=== PATIENT | male | born 1950 | race African-American/Black ===

== ENCOUNTER 2017-03-14 10:16 | Inpatient (IN) | payer MEDICARE ==
[2017-03-14] VITALS (11 sets, daily range): BP systolic 102–129; BP diastolic 61–93; PULSE 67–82; RESP 18–20; TEMP 98.1–98.4; O2SAT 96–100
[~2017-03-14 10:16] MED LIST: ALBU17I PO; ALBU8I INH; APIX5TAB PO; ATOR40TA PO; COZA100T PO; CYCL-36 PO; DIGO0.12 PO; FLON0.053 INH; LORA10TA7 PO; LORT5TAB PO; METO100T PO; PROT40TA PO; STOO100T PO; TOVI4TAB PO; VITA100020 PO; VITA20003 PO
[2017-03-14] MEDS ORDERED: HEPARIN SODIUM - IV 10,000 UNITS/10 ML VIAL IV PUSH STA (10:17)
[2017-03-14] MEDS ORDERED: SODIUM CHLOR 0.9% 1000 ML INJ 1,000 ML IV ONE (10:17)
[2017-03-14] MEDS ORDERED: NITROGLYCERIN 0.4 MG SL 25 TABS/BTL SL STA (10:17)
[2017-03-14] MEDS ORDERED: ASPIRIN 81 MG CHEW TAB PO STA (10:17)
[2017-03-14] MEDS ORDERED: ASPIRIN 81 MG CHEW TAB ONE (10:22)
[2017-03-14] MEDS ORDERED: HEPARIN-NS/PF INJ 1,000 ML ONE (10:25)
[2017-03-14] MEDS ORDERED: SODIUM CHLORIDE 0.9% FLUSH 10 ML FLUSH IVF PRN (10:30)
--- NOTE | 2017-03-14 10:35 | RADRPT ---
EXAM DATE/TIME: 03/14/2017 10:21 [place] COMPARISON: No previous studies available for comparison. INDICATIONS : Chest pain, STEMI alert. MEDICAL HISTORY : None. SURGICAL HISTORY : None. ENCOUNTER: Initial ACUITY: 1 day PAIN SCORE: 10/10 LOCATION: middle chest. FINDINGS: A single view of the chest demonstrates the lungs to be symmetrically aerated without evidence of mas s, infiltrate or effusion. Atherosclerotic changes are present in the aorta. There is moderate eleva tion of the left lyubov-diaphragm with mild gaseous distention in the region of the splenic flexure. Mu ltiple overlying retrocardiac region present. The cardiomediastinal contours are unremarkable. [place] structures are intact. CONCLUSION: 1. Moderate elevation of the left hemidiaphragm with mild gaseous distention in the region the spleni c flexure. 2. No confluent infiltrates or effusions. Tim Mathew MD on March 14, 2017 at 10:33 Board Certified Radiologist. This report was verified electronically.
[2017-03-14 10:36] LABS: AUTOMATED NEUTROPHIL # 2.3 TH/MM3 (1.8-7.7); BASOPHIL % 0.4 % (0.0-2.0); EOSINOPHIL # 0.1 TH/MM3 (0-0.4); EOSINOPHIL % 1.7 % (0.0-4.0); HEMATOCRIT 37.2 % (39.0-51.0); HEMOGLOBIN 12.2 GM/DL (13.0-17.0); LYMPHOCYTE # 2.8 TH/MM3 (1.0-4.8); MEAN CELL VOLUME 91.9 FL (80.0-100.0); MEAN CORPUSCULAR HEMOGLOBIN 30.2 PG (27.0-34.0); MEAN CORPUSCULAR HGB CONC 32.9 % (32.0-36.0); MEAN PLATELET VOLUME 9.9 FL (7.0-11.0); MONO % 9.5 % (0.0-8.0); MONOCYTE # 0.6 TH/MM3 (0-0.9); NEUT % 39.4 % (16.0-70.0); PLATELET COUNT 133 TH/MM3 (150-450); RED BLOOD COUNT 4.04 MIL/MM3 (4.50-5.90); RED CELL DISTRIBUTION WIDTH 12.5 % (11.6-17.2); WHITE BLOOD COUNT 5.8 TH/MM3 (4.0-11.0)
[2017-03-14 10:47] LABS: INTERNATIONAL NORMALIZED RATIO 1.1 RATIO; PROTHROMBIN TIME - PATIENT 10.8 SEC (9.8-11.6)
[2017-03-14] MEDS ORDERED: NITROGLYCERIN 0.4 MG SL 25 TABS/BTL SL ONE (10:47)
--- NOTE | 2017-03-14 10:49 | PD ---
HPI Chief Complaint: STEMI Alert Time Seen by Provider: 10:17 Travel History International Travel<30 days: No Contact w/Intl Traveler<30days: No Traveled to known affect area: No History of Present Illness HPI Patient is a 67 year old male who had sudden onset of heavy chest pain in the center of his chest approximately 30 mins MARKER DELIVERY. Patient followed by Dr. Tate. EMS called stemi alert in the field for anterior ischemia. Patient has history of atrial fibrillation previously on eliquis was stopped several months ago. Patient also reports SOB. states he looked like he was going to pass out. Appears quite uncomfortable on arrival. Had 81 ASA at home prior to EMS, 81mg of ASA from EMS. Nitro x1 from EMS with minimal relief. No cath no stress in past according to him. Symptoms severe, onset just prior to arrival, associated s/s as above, context as above, no radiation. PFSH Past Medical History Asthma: Yes Cancer: No Cardiovascular Problems: Yes Diabetes: No Diminished Hearing: No Endocrine: No Glaucoma: No Genitourinary: Yes (BPH) Hepatitis: No Hiatal Hernia: No Hypertension: Yes Immune Disorder: No Musculoskeletal: Yes (BACK) Neurologic: No Psychiatric: No Reproductive: No Respiratory: Yes (ASTHMA) Thyroid Disease: No Past Surgical History Abdominal Surgery: Yes (LAP SYLVIA) Body Medical Devices: SCREWS BACK Cholecystectomy: Yes (1999) Endocrine Surgery: Yes Genitourinary Surgery: Yes (08/23/10 CYSTOSCOPY TUR PROSTATE) Joint Replacement: No Oral Surgery: Yes (T&A) Pacemaker: No Other Surgery: Yes (gallbaldder x20 years) Social History Alcohol Use: Yes (STOPPED DRINKING BEER 2002) Tobacco Use: No Substance Use: No Allergies-Medications (Allergen,Severity, Reaction): Coded Allergies: No Known Allergies (Verified , 12/09/15) Reported Meds & Prescriptions Reported Meds & Active Scripts Active Toviaz (Fesoterodine Fumarate) 4 Mg Tab 4 Mg PO DAILY Reported Atorvastatin 40 mg (Atorvastatin Calcium) 40 Mg Tab 40 Mg PO DAILY Vitamin B-12 (Cyanocobalamin) 1,000 Mcg Tab 1,000 Mcg PO DAILY Metoprolol Tartrate 100 mg (Metoprolol Tartrate) 100 Mg Tab 50 Mg PO BID Eliquis (Apixaban) 5 Mg Tab 5 Mg PO BID Digoxin 0.125 mg (Digoxin) 0.125 Mg Tab 0.125 Mg PO DAILY Ventolin Hfa (Albuterol Sulfate) 8 Gm Aero 2 Puff INH Q4 * SHAKE WELL BEFORE USE * Stool Softener (Docusate Sodium) 100 Mg Tab 100 PO DAILY PRN Vitamin D (Cholecalciferol) 2,000 Unit Tab 4,000 Unit PO DAILY Protonix (Pantoprazole Sodium) 40 Mg Tabdr 40 Mg PO DAILY Lortab 5/500 (Acetaminophen/Hydrocodone Bitart) 5 Mg/500 Mg Tab 1 Tab PO TID PRN Cozaar (Losartan Potassium) 100 Mg Tab 100 Mg PO DAILY Flexeril (Cyclobenzaprine HCl) 10 Mg Tab 10 Mg PO HSPRN Proventil Mdi (Albuterol Sulfate) 17 Gm Aero 2 Puff PO Q4-6HPRN DYSPNEA Claritin (Loratadine) 10 Mg Tab 10 Mg PO BIDPRN Flonase (Fluticasone Propionate) 0.05 % Naspr 50 Mcg INH BIDPRN Review of Systems Except as stated in HPI: all other systems reviewed are Neg Physical Exam Narrative GENERAL: WD/WN diaphoretic, uncomfortable, quite uncomfortable appearance. SKIN: cool and diaphoretic. HEAD: Atraumatic. Normocephalic. EYES: Pupils equal and round. No scleral icterus. No injection or drainage. ENT: No nasal bleeding or discharge. Mucous membranes pink and moist. NECK: Trachea midline. No JVD. CARDIOVASCULAR: Regular rate and rhythm. 2+bilaterally equal pulses in all four extremities. RESPIRATORY: No accessory muscle use. Clear to auscultation. Breath sounds equal bilaterally. GASTROINTESTINAL: Abdomen soft, non-tender, nondistended. Hepatic and splenic margins not palpable. MUSCULOSKELETAL: Extremities without clubbing, cyanosis, or edema. No obvious deformities. NEUROLOGICAL: Awake and alert. No obvious cranial nerve deficits. Motor grossly within normal limits. Five out of 5 muscle strength in the arms and legs. Normal speech. PSYCHIATRIC: Appropriate mood and affect; insight and judgment normal. Data Data Last Documented VS Vital Signs Date Time Temp Pulse Resp B/P (MAP) Pulse Ox O2 Delivery O2 Flow Rate FiO2 03/14/17 10:27 Nasal Cannula 2.00 03/14/17 10:21 98.4 81 18 126/92 (103) 100 Orders Orders Troponin I (03/14/17 10:17) Ckmb (Isoenzyme) Profile (03/14/17 10:17) Complete Blood Count With Diff (03/14/17 10:17) I-Stat Profile (03/14/17 10:17) I-Stat Creatinine (03/14/17 10:17) Calcium (03/14/17 10:17) Magnesium (Mg) (03/14/17 10:17) Prothrombin Time / Inr (Pt) (03/14/17 10:17) Act Partial Throm Time (Ptt) (03/14/17 10:17) B-Type Natriuretic Peptide (03/14/17 10:17) Chest, Single Ap (03/14/17 10:17) Electrocardiogram (03/14/17 10:17) Oxygen Administration (03/14/17 10:17) Iv Access Insert/Monitor (03/14/17 10:17) Oximetry (03/14/17 10:17) Sodium Chlor 0.9% 1000 Ml Inj (Ns 1000 M (03/14/17 10:17) Sodium Chloride 0.9% Flush (Ns Flush) (03/14/17 10:30) Nitroglycerin Sl (Nitrostat Sl) (03/14/17 10:17) Heparin Inj (Heparin Inj) (03/14/17 10:17) Aspirin Chew (Aspirin Chew) (03/14/17 10:17) Aspirin Chew (Aspirin Chew) (03/14/17 10:22) Heparin-Ns/Pf Inj (Heparin-Ns/Pf Inj) (03/14/17 10:25) Cardiac Catheterization (03/14/17 ) Nitroglycerin Sl (Adm Overrid) (Nitrosta (03/14/17 10:47) Admit Order (Ed Use Only) (03/14/17 ) Labs Laboratory Tests Test 03/14/17 10:20 White Blood Count 5.8 TH/MM3 Red Blood Count 4.04 MIL/MM3 Hemoglobin 12.2 GM/DL Bedside Hemoglobin 12.2 G/DL Hematocrit 37.2 % Bedside Hematocrit 36.0 % Mean Corpuscular Volume 91.9 FL Mean Corpuscular Hemoglobin 30.2 PG Mean Corpuscular Hemoglobin Concent 32.9 % Red Cell Distribution Width 12.5 % Platelet Count 133 TH/MM3 Mean Platelet Volume 9.9 FL Neutrophils (%) (Auto) 39.4 % Lymphocytes (%) (Auto) 49.0 % Monocytes (%) (Auto) 9.5 % Eosinophils (%) (Auto) 1.7 % Basophils (%) (Auto) 0.4 % Neutrophils # (Auto) 2.3 TH/MM3 Lymphocytes # (Auto) 2.8 TH/MM3 Monocytes # (Auto) 0.6 TH/MM3 Eosinophils # (Auto) 0.1 TH/MM3 Basophils # (Auto) 0.0 TH/MM3 CBC Comment DIFF FINAL Differential Comment Prothrombin Time 10.8 SEC Prothromb Time International Ratio 1.1 RATIO Activated Partial Thromboplast Time 22.6 SEC Bedside Sodium 142 MMOL/L Bedside Potassium 3.6 MMOL/L Bedside Chloride 109 MMOL/L Bedside Blood Urea Nitrogen 12 MG/DL Bedside Creatinine 1.0 MG/DL Bedside Glucose 135 MG/DL Calcium Level 9.5 MG/DL Magnesium Level 2.1 MG/DL MDM Medical Decision Making Medical Screen Exam Complete: Yes Emergency Medical Condition: Yes Differential Diagnosis STEMI, AMI, NSTEMI, CHF. Narrative Course Discussed with Dr. Tate who is on STEMI call for [facility] @ 10:23 he is currently at [facility] and is enroute. 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 10:30am in skill labor. Awaiting arrival of Dr. Tate. I am remaining at the bedside, i have verbal ordered another 2xSL nitro to the skill labor personnel. Dr. Tate in skill labor at 10:55, care passed off at this time. Last 24 hours Impressions Chest X-Ray 03/14/17 1017 Signed Impressions: Service Date/Time: Tuesday, March 14, 2017 10:21 - CONCLUSION: 1. Moderate elevation of the left hemidiaphragm with mild gaseous distention in the region the splenic flexure. 2. No confluent infiltrates or effusions. Tim Mathew MD Total interventions: 324ASA 4xSL nitro 0.4 5000u Heparin. Oxygen. NS administered by skill labor personnel. Critical Care Narrative Aggregate critical care time was 35 minutes. Time to perform other separately billable procedures was not included in the critical care time. My time did not include minutes spent treating any other patients simultaneously or on activities that did not directly contribute to the patient's treatment. The services I provided to this patient were to treat and/or prevent clinically significant deterioration that could result in: , Disability, End organ failure. I provided critical care services requiring my management, as noted below: Chart data review, documentation time, medication orders and management, vital sign assessments/reviewing monitor data, ordering and reviewing lab tests, ordering and interpreting/reviewing x-rays and diagnostic studies, care of the patient and discussion of the patient with the admitting physicians. Diagnosis Primary Impression: STEMI (ST elevation myocardial infarction) Admitting Information Admitting Physician Requests: Admit Condition: Critical Kye Wilson MD Mar 14, 2017 10:49
[2017-03-14 10:52] LABS: CALCIUM 9.5 MG/DL (8.5-10.1); MAGNESIUM 2.1 MG/DL (1.5-2.5)
[2017-03-14 10:55] LABS: TROPONIN I 0.02 NG/ML (0.02-0.05)
[2017-03-14] MEDS ORDERED: MORPHINE SULFATE 8 MG/ML INJ ONE (10:58)
[2017-03-14] MEDS ORDERED: ONDANSETRON HCL 4 MG/2 ML VIAL ONE (11:24)
[2017-03-14] MEDS ORDERED: CLOPIDOGREL 300 MG TAB ONE (11:24)
[2017-03-14] MEDS: ONDANSETRON HCL 4 MG/2 ML VIAL IV PUSH PRN ×3 (11:25→21:32)
--- NOTE | 2017-03-14 11:44 | CATHPROC ---
[facility] HIS Report Study Information Study Number Admission Scheduled Start Study Start [id number] Mar 14 2017 10:16AM 03/14/2017 Mar 14 2017 10:30AM [place] [facility] Cardiac Catheterization Admit Source Facility Department Emergency department [facility] - Community Administrator Physician and Clinical Staff Initial José Antonio Smart Operations/Dispatchsarah Buenrostro RN, Malou Garcia,ZACH Recorder Elmo, Harman,RT(R) Scrub Cami Chapman,DUKE TECH2 Procedures Performed Procedure Location (Site) Vessel Name Coronary Angiograms LCA Left Coronary Coronary Angiograms RCA Right Coronary Drug Eluting Inflatio LAD Prox Left Coronary L Heart Cath PTCA LAD Prox Left Coronary Wire insertion Fem Art (right) Femoral Art Equipment Time Radio Talk Show Host Description Size Mfg Part Number Used/Scraped [id number] 11:03 [employer] WIRE, ASABreathez Vac Services PROWATER 180CM 180CM Used *[id number] TRANSDUCER, TRUWAVE [id number] 10:31 Sharypic CHANG * Used W/STOCKCOCK *[id number] *[id number] *[id number] *[id number] *[id number] 10:31 Booster.[employer] INDUSTRIES PACK, CCL CUSTOM * Used *[id number] 10:31 Booster.[employer] PACER PEN, SKIN DUAL W/ RULER * Used *[id number] 11:11 [employer]IC BALLOON, 2.0 X 15MM EUPHORA 15MM Used *[id number] 11:14 [employer] STENT, 3.5 18MM RAJINDER 3.5 18MM Used *[id number] 11:13 [employer]vision [employer] MEDICAL 30 RACHEL INDEFLATOR Used *[id number] 10:31 [employer] SHEATH, FR6.5 PRELUDE 11CM FR 6.5 038ACT Used *[id number] 10:31 [employer] WIRE, 3MMJ .035 180CM 180CM Used *[id number] 10:31 NAMIC MANIFOLD, 4 PORT * Used *[id number] 10:31 [employer]COMED OMNIPAQUE, 350 MG, 100ML 100ML [id number] Used [id number] 10:31 [employer],WARM AIR CCL * Used *[id number] Equipment Model, Serial, Lot Number and Expiration Data Description Model Number Serial Number Lot Number Expiration Date STENT, 3.5 18MM RAJINDER [id number] 12-27-2018 History: Allergies Allergy Reaction No Known Allergies History: Risk Factors Family History of Hypertension Dyslipidemia Previous [place] Previous Heart Failure Premature CAD Yes Yes Yes No No Prior Valve Prior PCI Prior CABG Surgery No No No Cerebrovascular Peripheral Artery Chronic Lung On Dialysis Diabetes Disease Disease Disease No No No No No History: Stress Tests Stress or Imaging Studies Performed No History: Other Current Smoker No Labs Hgb (g/dl) Hct (%) 11.60-17.00 35.00-51.00 12.2 36 Glucose (mg/dl) BUN (mg/dl) Creatinine (mg/dl) BUN:Creatinine (1:x) 74.00-106.00 7.00-18.00 0.50-1.30 10.00-20.00 135 12 1.0 12 Na (meq/l) K (meq/l) 136.00-145.00 3.50-5.10 142 3.6 CPK-MB (ng/ML) 0.50-3.60 Not Drawn Medication Medication Total Dose (Bolus/Oral) Medication Total Dosage/Unit 1% XYLOCAINE 20 mL HEPARIN 1500 units MORPHINE 8 mg NITROGLYCERIN S/L 0.8 mg PLAVIX 600 mg ZOFRAN 4 mg Medications (Bolus/Oral) Medication Time Given Dosage/Unit Administered By Reason 03/14/2017 10:48:18 NITROGLYCERIN S/L 0.4 mg Malou Saleh AM 0.4 mg NITROGLYCERIN S/L given in lab by Malou Saleh, ZACH via Sublingual. verbal order by Dr. Wilson 03/14/2017 10:53:40 NITROGLYCERIN S/L 0.4 mg Malou Saleh AM 0.4 mg NITROGLYCERIN S/L given in lab by Malou Saleh, ZACH via Sublingual. verbal order by Dr. Wilson 03/14/2017 10:59:02 1% XYLOCAINE 20 mL José Antonio Tate AM 20 mL 1% XYLOCAINE given in lab by José Antonio Tate in Right Groin via Subcutaneous. 03/14/2017 11:00:30 MORPHINE 8 mg Malou Saleh AM 8 mg MORPHINE given in lab by Malou Saleh, ZACH in Left Antecubital via Peripheral IV. Ordered by José Antonio Terry. 03/14/2017 11:06:06 HEPARIN 1000 units Cody Malou AM 1000 units HEPARIN given in lab by Malou Saleh, ZACH in Left Antecubital via Peripheral IV. Ordered by José Antonio Tate. 03/14/2017 11:16:27 HEPARIN 500 units Hes, Malou AM 500 units HEPARIN given in lab by Malou Saleh, ZACH in Left Antecubital via Peripheral IV. Ordered José Antonio Hall. 03/14/2017 11:25:34 ZOFRAN 4 mg Hes, Malou AM 4 mg ZOFRAN given in lab by Malou Saleh RN in Left Antecubital via Central IV. Ordered by José Antonio Lr. 03/14/2017 11:29:30 PLAVIX 600 mg Malou Saleh AM 600 mg PLAVIX given in lab by Malou Saleh, ZACH via Oral. Ordered by José Antonio Tate. Medication (Drip) Medication Time Given Dosage/Unit Concentration/Unit Diluent (ml) Solution 03/14/2017 10:36:49 IV Solutions 0 mL (IV) 1000 NaCl .9 AM Patient arrived on IV Solutions given by José Antonio Tate in Left Antecubital via Peripheral IV. Pump/ Drip Flow = 20 ml/hr using NaCl .9. Ordered by José Antonio Tate. 03/14/2017 10:40:07 IV Solutions 0 mL (IV) 1000 NaCl .9 AM IV Solutions given in lab by José Antonio Tate in Right Antecubital via Peripheral IV. Pump/Drip Flow = 20 ml/hr using NaCl .9. Ordered by José Antonio Tate. Initial Case Assessment Cardiovascular HR Rhythm NIBP Chest Pain 94 stemi 137/103 10 Edema Present Skin color Skin None Normal Warm Dry Circulatory - Right Pulses Dorsalis Pedis Femoral 1 1 Scale (0,1,2,3,4,d) Circulatory - Left Pulses Dorsalis Pedis Femoral 1 3 Scale (0,1,2,3,4,d) Neurological State Oriented to time-place- Alert Moves all extremities person Respiration - General Respiration Rate SpO2 (%) O2 (lpm) (B/min) 18 99 2 Final Case Assessment Cardiovascular HR Rhythm NIBP Chest Pain 80 SR 113/81 0 Edema Present Skin color Skin None Normal Warm Dry Circulatory - Right Pulses Dorsalis Pedis Femoral 1 1 Scale (0,1,2,3,4,d) Circulatory - Left Pulses Dorsalis Pedis Femoral 1 3 Scale (0,1,2,3,4,d) Neurological State Oriented to time-place- Alert Moves all extremities person Respiration - General Respiration Rate SpO2 (%) O2 (lpm) (B/min) 20 95 2 Chronological Log Time Study Chronological Log 10:33:37 Patient arrived via Bed. 10:33:39 Patient Name, D.O.B, / Armband Verified By R.N. 10:33:40 Consent signed by the physician and the patient and verified by the Community Administrator staff. 10:33:42 Pre-op and post- op instructions given; patient acknowledges understanding of instructions. 10:34:19 Verbal Stimulation=2 Physical Stimulation=2 Airway=2 Respiration=2 TOTAL=8. (0=absent, 1=li mited, 2=present) 10:34:32 Presedation assessment performed by Community Administrator RN. 10:36:30 A # 18 IV was noted in the Antecubital (left). Grade = 0 10:36:40 A # 18 IV was noted in the Antecubital (right). Grade = 0 Patient arrived on IV Solutions given by José Antonio Tate in Left Antecubital via Peripheral IV. Pump/Drip Flow = 20 10:36:49 ml/hr using NaCl .9. Ordered by José Antonio Tate. 10:37:19 History and physical on the chart or being dictated. Vitals capture started with the following parameters, Patient=Adult, Interval=5 min, Initial Pr dnbxuz=564 mmHg, 10:37:23 Deflation Rate=5 mmHg, Cuff placed on Left Arm Assessment: Initial Case, HR=94 BPM, Rhythm=stemi, GTHC=221/103 mmhg, Chest Pain=10, Edema=None , Color=Normal, Skin = Warm, Dry Right Pulses: Carlo Ped=1, Femoral=1 10:37:27 Left Pulses: Carlo Ped=1, Femoral=3 Neurological: State=Alert, Ox3, MALIK Respiration: Resp=18 B/min, SpO2=99 %, O2=2 lpm 10:38:25 HR=95 bpm, XKUU=375/103 mmhg, SpO2=99.0 %, Resp=11 B/min, Rae=2 IV Solutions given in lab by José Antonio Tate in Right Antecubital via Peripheral IV. Pump/Drip Flow = 20 ml/hr using 10:40:07 NaCl .9. Ordered by José Antonio Tate. 10:41:31 Bilateral groins prepped with 2% chlorhexidine, and draped after a 3 minute waiting time. 10:42:13 Pressure channel 1 zeroed. 10:42:58 HR=79 bpm, QBEO=462/97 mmhg, SpO2=98.0 %, Resp=17 B/min 10:44:54 Reference ECG taken 10:47:57 HR=81 bpm, AAWY=854/105 mmhg, SpO2=99.0 %, Resp=17 B/min 10:48:18 0.4 mg NITROGLYCERIN S/L given in lab by Malou Saleh, RN via Sublingual. verbal order by Dr. Wilson 10:53:00 HR=85 bpm, ZTDQ=883/86 mmhg, SpO2=99.0 %, Resp=19 B/min 10:53:40 0.4 mg NITROGLYCERIN S/L given in lab by Malou Saleh, RN via Sublingual. verbal order by Dr. Wilson 10:55:43 MD arrived. Time Out. Correct patient, correct procedure, correct physician, power injector loaded, or not loaded with contrast with 10:57:44 surgical team present. Time Out Concurred by MD and individual staff in procedure. 10:57:57 HR=83 bpm, XADA=437/84 mmhg, SpO2=95.0 %, Resp=14 B/min 10:58:36 Case Start 10:59:02 20 mL 1% XYLOCAINE given in lab by José Antonio Tate in Right Groin via Subcutaneous. 11:00:28 Access site was Right Femoral Artery. 11:00:30 8 mg MORPHINE given in lab by Malou Saleh, RN in Left Antecubital via Peripheral IV. Ord ered by José Antonio Tate. 11:00:41 A SHEATH, FR6.5 PRELUDE 11CM FR 6.5 was advanced into the Fem Art (right) using the Percuta neous technique. 11:01:18 Activated Clotting Time Drawn A JL 4.0 INFINITI CATHETER FR 6 was advanced over a wire. OMNIPAQUE, 350 MG, 100ML 100ML was us ed for 11:01:46 injections. Recorded Pressure: Ao, HR=85, Condition=Condition 1 11:02:22 (Aorta) Ao 102/78/90 11:02:39 The LCA was injected and visualized at various angles. OMNIPAQUE, 350 MG, 100ML 100ML used . 11:02:58 HR=82 bpm, QWXZ=559/77 mmhg, SpO2=96.0 %, Resp=28 B/min After removing the current catheter a JR 4.0 INFINITI CATHETER FR 6 was advanced over a WIRE, 3 MMJ .035 180CM 11:03:10 180CM. 11:03:44 The RCA was injected and visualized at various angles. OMNIPAQUE, 350 MG, 100ML 100ML used . 11:04:03 Catheter was removed A XBLAD 3.5 GUIDE CATHETER FR 6 was advanced over a wire. OMNIPAQUE, 350 MG, 100ML 100ML was us ed for 11:04:17 injections. 11:05:21 ACT (Normal Range 90-180) = 193 1000 units HEPARIN given in lab by Malou Saleh RN in Left Antecubital via Peripheral IV. Or dered by Bebeto 11:06: José Antonio. 11:06:21 Catheter was removed A XBLAD 4.0 GUIDE CATHETER FR 6 was advanced over a wire. OMNIPAQUE, 350 MG, 100ML 100ML was us ed for 11:07:39 injections. 11:07:57 HR=81 bpm, KAEB=275/77 mmhg, SpO2=95.0 %, Resp=30 B/min 11:08:49 A WIRE, ASAHI PROWATER 180CM 180CM was inserted via Fem Art (right). 11:10:42 Interventional wire has crossed the lesion 11:11:37 Activated Clotting Time Drawn A BALLOON, 2.0 X 15MM EUPHORA 15MM was inserted over WIRE, ASAHI PROWATER 180CM 180CM via the F em Art 11:11:56 (right). A BALLOON, 2.0 X 15MM EUPHORA 15MM over a WIRE, ASAHI PROWATER 180CM 180CM in the LAD Prox was inflated 11:12:21 using a 30 RACHEL INDEFLATOR at 14 rachel for 14 sec. 11:12:58 HR=79 bpm, GZFD=031/81 mmhg, SpO2=96.0 %, Resp=27 B/min 11:13:11 Balloon Removed. A STENT, 3.5 18MM RAJINDER 3.5 18MM was advanced through a XBLAD 4.0 GUIDE CATHETER FR 6 over a WIR Kishor, GEOVANY 11:15:24 PROWATER 180CM 180CM. A STENT, 3.5 18MM RAJINDER 3.5 18MM was deployed using a 30 RACHEL INDEFLATOR at 14 atmospheres for 12 seconds in 11:15:57 the LAD Prox. 11:16:08 ACT (Normal Range 90-180) = 239 11:16:27 500 units HEPARIN given in lab by Malou Saleh RN in Left Antecubital via Peripheral IV. Ordered by José Antonio Tate. 11:17:57 HR=72 bpm, UNXM=482/78 mmhg, SpO2=97.0 %, Resp=29 B/min 11:19:03 Re-inflated the stent balloon in the LAD Prox to 18 RACHEL for 12 seconds. 11:19:43 Delivery device removed 11:19:49 Wire removed 11:19:52 Catheter was removed 11:21:12 In the Fem Art (right) the SHEATH, FR6.5 PRELUDE 11CM FR 6.[address] by José Antonio Clemens ms. 11:22:48 Activated Clotting Time Drawn 11:23:00 HR=81 bpm, OAYJ=059/75 mmhg, SpO2=96.0 %, Resp=19 B/min 11:23:30 Case End 11:24:35 Sterile dressing applied to site 11:24:35 No case complications noted. 11:24:41 Bedside Report will be given. 11:24:41 Implantable Device card placed in patient's chart. 11:24:44 Contrast Scanned 11:24:46 A Left Heart Cath was performed. 11:25:34 4 mg ZOFRAN given in lab by Malou Saleh, RN in Left Antecubital via Central IV. Ordered by José Antonio Tate. 11:27:53 ACT (Normal Range 90-180) = 269 11:27:59 HR=89 bpm, CNBY=537/73 mmhg, SpO2=96.0 %, Resp=10 B/min 11:29:30 600 mg PLAVIX given in lab by Malou Saleh, RN via Oral. Ordered by José Antonio Tate. 11:32:56 HR=80 bpm, NLCF=717/83 mmhg, SpO2=95.0 %, Resp=19 B/min 11:37:59 HR=79 bpm, QMGW=051/81 mmhg, SpO2=94.0 %, Resp=15 B/min Assessment: Final Case, HR=80 BPM, Rhythm=SR, CHOF=094/81 mmhg, Chest Pain=0, Edema=None, Color =Normal, Skin = Warm, Dry Right Pulses: Carlo Ped=1, Femoral=1 11:38:32 Left Pulses: Carlo Ped=1, Femoral=3 Neurological: State=Alert, Ox3, MALIK Respiration: Resp=20 B/min, SpO2=95 %, O2=2 lpm 11:42:58 RD=751 bpm, NUOS=757/83 mmhg, SpO2=94.0 %, Resp=17 B/min 11:44:03 Vitals capture stopped. 11:45:46 Patient moved to grant hospitaler End Study - Contrast Media Used In Study Contrast Total Opened (mL) Total Used (mL) Total Wasted (mL) Omnipaque 100 100 0 End Study - Maximum Contrast Load Max Contrast Load (mL) 410.0 End Study - Radiation Exposure Fluoro Time (minutes) 6.2 End Study - Patient Disposition Complications Transferred To Interventional Outcome No Telemetry Bed successful
[2017-03-14] MEDS ORDERED: BACITRACIN OINT 0.9 GM PKT TOP ONE (11:45)
[2017-03-14] MEDS ORDERED: LIDOCAINE HCL 1% 50 ML VIAL INFIL PRN (11:45)
[2017-03-14] MEDS ORDERED: LORazepam 2 MG/ML VIAL IV PUSH PRN (11:45)
[2017-03-14] MEDS ORDERED: SODIUM CHLOR 0.9% 250 ML INJ 250 ML IV PRN (11:45)
[2017-03-14] MEDS ORDERED: ATROPINE SULFATE 1 MG/ML VIAL IV PUSH PRN (11:45)
[2017-03-14] MEDS ORDERED: MISC INFORMATION XX ONE (11:45)
[2017-03-14] MEDS ORDERED: ACETAMINOPHEN 325 MG TAB PO PRN (11:45)
--- NOTE | 2017-03-14 12:25 | MH ---
cc: ENRRIQUE GONZALES MD DATE OF ADMISSION 03/14/2017 HISTORY OF PRESENT ILLNESS This is a 67-year-old gentleman who had the sudden onset of chest discomfort with nausea and vomiting approximately 30 minutes prior to admission to the hospital. No prior history of chest pain had been present. Some shortness of breath and diaphoresis was present upon arrival to the emergency department, electrocardiogram demonstrated evidence for acute anterior AK. No prior history of coronary disease has been present. He does have a past history of atrial fibrillation with successful cardioversion. He had been on Eliquis, but this was stopped approximately six months ago. PAST MEDICAL HISTORY Otherwise has been significant for: 1. Hypertension 2. Hyperlipidemia PAST SURGICAL HISTORY 1. The patient has had cholecystitis as well as he back Surgeries. 2. Last year underwent cystoscopy and TUR of the prostate SOCIAL HISTORY The patient does not drink, smoke or use recreational drugs. ALLERGIES None MEDICATIONS Medications at home have included: 3. Atorvastatin 40 mg daily. 4. Metoprolol 50 twice a day. 5. Digoxin 0.125 daily. 6. Protonix 40 mg daily. 7. Losartan 100 mg daily. 8. Flexeril as needed. 9. Proventil as needed. 10. Flonase included on a p.r.n. basis. REVIEW OF SYSTEMS Otherwise unremarkable. PHYSICAL EXAMINATION The patient was in moderate distress. VITAL SIGNS: Blood pressure was 110/70, pulse 80 and regular. NECK: There is no neck vein distension. LUNGS: Clear. CARDIOVASCULAR: Exam reveals regular rate and rhythm. No murmur or gallop was noted. ABDOMEN: Soft. There is no tenderness or organomegaly. EXTREMITIES: Reveal no edema. ASSESSMENT The patient has evidence for acute anterior AK. PLAN We will plan emergency catheterization for further evaluation. MD ZACH Finley/JOHNNY /11:47 AM /12:19 PM
[2017-03-14] MEDS ORDERED: IOHEXOL 350 MG/ML 100 ML BTL (for Cath Lab) OTHER ONE (12:29)
--- NOTE | 2017-03-14 13:29 | MA ---
cc: ENRRIQUE GONZALES MD DATE: 03/14/2017 PROCEDURE The patient was prepped and draped in usual fashion. A six sheath was inserted percutaneously into the right femoral artery. ACT was drawn with results of 196. Coronary angiography was done with Benitez preformed catheters. Results of the catheterization demonstrated a normal left main. Left anterior descending artery was totally occluded just after the takeoff of the left main. Left circumflex artery arose from the left main and was essentially normal throughout its course. The right coronary was anatomically dominant and normal throughout its course. Additional 1000 units of heparin were administered with subsequent ACT of 234 seconds, a third dose of 500 units was administered with a subsequent ACT of 250 seconds. A XB 3.5 guide was initially used and was unable to cannulate the left main. This was swapped for a XB LAD 4.0 guide which fit nicely into the left main. The LAD was wired with a Grid20/20 wire and pre-dilatation was done with a 2-0 x 12 mm balloon. This restored some flow to albeit LYNN I flow with a residual high-grade stenosis in the proximal LAD with a second stenosis noted in the mid LAD of approximately 70%, which had the appearance of intraluminal thrombus. A 3.0 x 18-mm drug-eluting stent was then deployed to 12 atmospheres. This resulted in good cosmetic result with some very slight residual. LYNN III flow was restored. A post-dilatation was then done to 18 atmospheres. This resulted in a residual stenosis of 0, again with LYNN-III flow and the previously noted stenosis in the mid-LAD resolved spontaneously. At that point the procedure was stopped. 600 mg of Plavix was administered orally. The sheath was sutured into place and the patient left the room in good condition. Anticipated that an echocardiogram will be done in the morning to further assess the patient's left ventricular function. CONCLUSION Successful PTCA and stenting of totally occluded proximal left anterior descending artery. MD ZACH Finley/PAULINA /11:49 AM /1:05 PM
--- NOTE | 2017-03-14 13:43 | EKG ---
Date Performed: 03/14/2017 Time Performed: 10:18:26 PTAGE: 67 years EKG: Sinus rhythm POSSIBLE SEPTAL MYOCARDIAL INFARCTION MARKED ST ELEVATION, CONSIDER ANTERIOR INJURY ACUTE [place] PREVIOUS TRACING : 01/12/2016 08.34 DOCTOR: Sulaiman Velasco Interpretating Date/Time 03/14/2017 13:42:32
[2017-03-14] MEDS ORDERED: TEMAZEPAM 15 MG CAP PO PRN (21:00)
[2017-03-14] MEDS ORDERED: METOPROLOL TARTRATE 25 MG TAB PO SCH (21:00)
[2017-03-14] MEDS: ACETAMINOPHEN/HYDROcodone 325 MG/5 MG TAB PO PRN (22:00)
[2017-03-15] VITALS (22 sets, daily range): BP systolic 119–149; BP diastolic 81–99; PULSE 76–106; RESP 16–20; TEMP 98–99; O2SAT 94–98
[2017-03-15 07:11] LABS: BASOPHIL % 0.2 % (0.0-2.0); EOSINOPHIL % 0.8 % (0.0-4.0); HEMATOCRIT 34.2 % (39.0-51.0); HEMOGLOBIN 11.1 GM/DL (13.0-17.0); LYMPH % 33.9 % (9.0-44.0); LYMPHOCYTE # 1.8 TH/MM3 (1.0-4.8); MEAN CELL VOLUME 92.6 FL (80.0-100.0); MEAN CORPUSCULAR HEMOGLOBIN 30.1 PG (27.0-34.0); MEAN CORPUSCULAR HGB CONC 32.5 % (32.0-36.0); MEAN PLATELET VOLUME 9.7 FL (7.0-11.0); MONO % 9.8 % (0.0-8.0); MONOCYTE # 0.5 TH/MM3 (0-0.9); NEUT % 55.3 % (16.0-70.0); PLATELET COUNT 97 TH/MM3 (150-450); RED BLOOD COUNT 3.69 MIL/MM3 (4.50-5.90); RED CELL DISTRIBUTION WIDTH 12.2 % (11.6-17.2); WHITE BLOOD COUNT 5.5 TH/MM3 (4.0-11.0)
[2017-03-15 07:32] LABS: BICARBONATE 23.8 MEQ/L (21.0-32.0); CREATININE 1.05 MG/DL (0.60-1.30)
--- NOTE | 2017-03-15 07:44 | PD.CARD.PN ---
Subjective Subjective Remarks Patient denies any further chest pain. No shortness breath or palpitations. Has been ambulating without lightheadedness. RN at bedside. Objective Medications Current Medications Medications (Trade) Dose Ordered Sig/Bear Route Start Time Stop Time Status Last Admin (NS Flush) 2 ml UNSCH PRN IVF 03/14/17 10:30 (Lipitor) 80 mg DAILY PO 03/15/17 09:00 (Aspirin Chew) 81 mg DAILY PO 03/15/17 09:00 (Plavix) 75 mg DAILY PO 03/15/17 09:00 (Tylenol) 325 mg Q4H PRN PO 03/14/17 11:45 (Restoril) 15 mg HS PRN PO 03/14/17 21:00 (Ativan Inj) 0.5 mg UNSCH PRN IV PUSH 03/14/17 11:45 03/15/17 11:44 (Atropine Inj) 0.5 mg UNSCH PRN IV PUSH 03/14/17 11:45 Sodium Chloride 250 ml @ 500 mls/hr ONCE PRN IV 03/14/17 11:45 03/15/17 11:44 (Zofran Inj) 4 mg Q4H PRN IV PUSH 03/14/17 11:45 03/14/17 21:32 (Xylocaine 1% Inj (50 ml)) 10 ml UNSCH PRN INFIL 03/14/17 11:45 03/15/17 11:44 ([place] 5-325 Mg) 1 tab TID PRN PO 03/14/17 22:00 03/14/17 22:00 (Prinivil) 10 mg DAILY PO 03/15/17 09:00 UNV (Lopressor) 50 mg Q12HR PO 03/15/17 09:00 UNV Vital Signs / I&O Vital Signs Date Time Temp Pulse Resp B/P (MAP) Pulse Ox O2 Delivery O2 Flow Rate FiO2 03/15/17 06:00 76 03/15/17 05:07 76 03/15/17 04:37 88 03/15/17 04:00 98.0 78 16 149/94 (112) 98 03/14/17 23:00 98.2 68 18 129/93 (105) 98 03/14/17 20:00 98.3 68 19 117/87 (97) 97 03/14/17 18:00 72 03/14/17 17:00 68 03/14/17 16:00 67 03/14/17 15:00 72 03/14/17 15:00 98.4 79 18 102/78 (86) 96 03/14/17 14:00 70 03/14/17 13:00 82 03/14/17 12:10 98.1 78 20 103/61 (75) 96 03/14/17 12:00 78 03/14/17 10:27 Nasal Cannula 2.00 03/14/17 10:21 98.4 81 18 126/92 (103) 100 I/O 03/14/17 03/14/17 03/14/17 03/15/17 03/15/17 03/15/17 07:00 15:00 23:00 07:00 15:00 23:00 Intake Total 420 ml Output Total 600 ml 300 ml Balance -600 ml 120 ml Intake Oral 420 ml Output Urine Total 600 ml 300 ml # Bowel Movements 0 Physical Exam GENERAL: Well-developed well-nourished. In no acute distress. NECK: No carotid bruits. No JVD. CARDIOVASCULAR: Regular rate and rhythm. No murmur appreciated. Groin site clean with no swelling or ecchymosis. RESPIRATORY: No accessory muscle use. Clear to auscultation. Breath sounds equal bilaterally. MUSCULOSKELETAL: No clubbing or cyanosis. No edema. NEUROLOGICAL: Awake and alert. Normal speech. Laboratory Laboratory Tests Test 03/14/17 10:20 03/15/17 06:13 White Blood Count 5.8 TH/MM3 5.5 TH/MM3 Red Blood Count 4.04 MIL/MM3 3.69 MIL/MM3 Hemoglobin 12.2 GM/DL 11.1 GM/DL Bedside Hemoglobin 12.2 G/DL Hematocrit 37.2 % 34.2 % Bedside Hematocrit 36.0 % Mean Corpuscular Volume 91.9 FL 92.6 FL Mean Corpuscular Hemoglobin 30.2 PG 30.1 PG Mean Corpuscular Hemoglobin Concent 32.9 % 32.5 % Red Cell Distribution Width 12.5 % 12.2 % Platelet Count 133 TH/MM3 97 TH/MM3 Mean Platelet Volume 9.9 FL 9.7 FL Neutrophils (%) (Auto) 39.4 % 55.3 % Lymphocytes (%) (Auto) 49.0 % 33.9 % Monocytes (%) (Auto) 9.5 % 9.8 % Eosinophils (%) (Auto) 1.7 % 0.8 % Basophils (%) (Auto) 0.4 % 0.2 % Neutrophils # (Auto) 2.3 TH/MM3 3.0 TH/MM3 Lymphocytes # (Auto) 2.8 TH/MM3 1.8 TH/MM3 Monocytes # (Auto) 0.6 TH/MM3 0.5 TH/MM3 Eosinophils # (Auto) 0.1 TH/MM3 0.0 TH/MM3 Basophils # (Auto) 0.0 TH/MM3 0.0 TH/MM3 CBC Comment DIFF FINAL AUTO DIFF Differential Comment Prothrombin Time 10.8 SEC Prothromb Time International Ratio 1.1 RATIO Activated Partial Thromboplast Time 22.6 SEC Bedside Sodium 142 MMOL/L Bedside Potassium 3.6 MMOL/L Bedside Chloride 109 MMOL/L Bedside Blood Urea Nitrogen 12 MG/DL Bedside Creatinine 1.0 MG/DL Bedside Glucose 135 MG/DL Calcium Level 9.5 MG/DL 9.0 MG/DL Magnesium Level 2.1 MG/DL Total Creatine Kinase 94 U/L Troponin I 0.02 NG/ML B-Type Natriuretic Peptide 44 PG/ML Blood Urea Nitrogen 13 MG/DL Creatinine 1.05 MG/DL Random Glucose 96 MG/DL Sodium Level 141 MEQ/L Potassium Level 4.4 MEQ/L Chloride Level 109 MEQ/L Carbon Dioxide Level 23.8 MEQ/L Anion Gap 8 MEQ/L Estimat Glomerular Filtration Rate 85 ML/MIN Triglycerides Level 75 MG/DL Cholesterol Level 88 MG/DL Imaging Last 24 hours Impressions Chest X-Ray 03/14/17 1017 Signed Impressions: Service Date/Time: Tuesday, March 14, 2017 10:21 - CONCLUSION: 1. Moderate elevation of the left hemidiaphragm with mild gaseous distention in the region the splenic flexure. 2. No confluent infiltrates or effusions. Tim Mathew MD Assessment and Plan Assessment and Plan 67-year-old male with a past medical history of HTN, HLD presented as a STEMI alert s/p PCI and stenting of occluded LAD lesion STEMI: Doing well. Continue aspirin, Plavix, beta kody, statin. Fredrick Lamas Mar 15, 2017 07:44
[2017-03-15 07:56] LABS: CHOLESTEROL/ HDL RATIO 2.54 RATIO; HDL CHOLESTEROL 34.6 MG/DL (40.0-60.0)
[2017-03-15] MEDS ORDERED: ALBUTEROL SULFATE 90 MCG/ACT HFA 8 GM INHALER INH PRN (08:45)
[2017-03-15 08:51] LABS: OVALOCYTES 1+ (NORMAL)
[2017-03-15] MEDS ORDERED: ATORVASTATIN 80 MG TAB PO SCH (09:00)
[2017-03-15] MEDS ORDERED: LISINOPRIL 5 MG TAB PO SCH (09:00)
[2017-03-15] MEDS: ATORVASTATIN 40 MG TAB PO SCH (09:17)
[2017-03-15] MEDS: METOPROLOL TARTRATE 50 MG TAB PO SCH ×2 (09:18→20:47)
[2017-03-15] MEDS: ASPIRIN 81 MG CHEW TAB PO SCH (09:18)
[2017-03-15] MEDS: PANTOPRAZOLE SOD 40 MG DELAYED RELEASE TAB PO SCH (09:18)
[2017-03-15] MEDS: LISINOPRIL 10 MG TAB PO SCH (09:18)
[2017-03-15] MEDS: CLOPIDOGREL 75 MG TAB PO SCH (09:18)
--- NOTE | 2017-03-15 14:25 | ECHRPT ---
Indication: cp CONCLUSIONS The left ventricular systolic function is severely reduced with an estimated ejection fraction in th e range of 20-25%. Doppler parameters are consistent with impaired left ventricular relaxtion (grade 1 diastolic dysfun ction). Akinesis from base to apical segments of the anterior and anteroseptal reynoso. Mild mitral valve regurgitation. Trace aortic valve regurgitation. There is mild tricuspid valve regurgitation. BP: / HR: Rhythm: MEASUREMENTS (Male / Female) Normal Values Technical Quality: 2D ECHO LV Diastolic Diameter PLAX 4.9 cm 4.2 - 5.9 / 3.9 - 5.3 cm LV Systolic Diameter PLAX 4.4 cm IVS Diastolic Thickness 1.7 cm 0.6 - 1.0 / 0.6 - 0.9 cm LVPW Diastolic Thickness 1.0 cm 0.6 - 1.0 / 0.6 - 0.9 cm LV Relative Wall Thickness 0.5 RV Internal Dim ED PLAX 2.6 cm M-MODE Aortic Root Diameter MM 3.8 cm LA Systolic Diameter MM 3.3 cm LA Ao Ratio MM 0.9 AV Cusp Separation MM 2.4 cm DOPPLER Mitral E Point Velocity 32.6 cm/s Mitral A Point Velocity 62.7 cm/s Mitral E to A Ratio 0.5 LV E' Lateral Velocity 12.6 cm/s Mitral E to LV E' Lateral Ratio 2.6 LV E' Septal Velocity 6.9 cm/s Mitral E to LV E' Septal Ratio 4.7 TR Peak Velocity 267.0 cm/s TR Peak Gradient 28.5 mmHg Right Atrial Pressure 10.0 mmHg Pulmonary Artery Systolic Pressu 38.5 mmHg Right Ventricular Systolic Press 38.5 mmHg FINDINGS LEFT VENTRICLE The left ventricular systolic function is severely reduced with an estimated ejection fraction in th e range of 20-25%. Normal left ventricular size. Doppler parameters are consistent with impaired left ventricular relaxtion (grade 1 diastolic dysfun ction). Akinesis from base to apical segments of the anterior and anteroseptal reynoso. RIGHT VENTRICLE Grossly normal right ventricle LEFT ATRIUM The left atrial size is normal. RIGHT ATRIUM The right atrial size is normal. ATRIAL SEPTUM Normal atrial septal thickness. AORTA The aortic root and proximal ascending aorta are normal in size on limited imaging. MITRAL VALVE Structurally normal mitral valve. Mild mitral valve regurgitation. No mitral valve stenosis. AORTIC VALVE Trileaflet aortic valve. Trace aortic valve regurgitation. TRICUSPID VALVE Structurally normal tricuspid valve. There is mild tricuspid valve regurgitation. The estimated pulmonary arterial pressure is 38.5 mmHg. PULMONARY VALVE No pulmonary valve regurgitation or stenosis. VESSELS The inferior vena cava is normal in size. PERICARDIUM No pericardial effusion. Dionte Lovett DO (Electronically Signed) Final Date:15 March 2017 14:24
[2017-03-15] MEDS: ACETAMINOPHEN/HYDROcodone 325 MG/5 MG TAB PO PRN (14:42)
[2017-03-15] MEDS ORDERED: ADAL60TA PO (17:06)
--- NOTE | 2017-03-15 22:25 | EKG ---
Date Performed: 03/15/2017 Time Performed: 05:26:14 PTAGE: 67 years EKG: Sinus rhythm Anterior NH - POSSIBLY ACUTE Abnormal ECG PREVIOUS TRACING : 03/14/2017 10.18 DOCTOR: Jason Garcia Interpretating Date/Time 03/15/2017 22:24:28
[2017-03-16] VITALS (11 sets, daily range): BP systolic 107–127; BP diastolic 74–95; PULSE 86–109; RESP 16; TEMP 98.6–100.3; O2SAT 96–97
--- NOTE | 2017-03-16 07:35 | PD.CARD.PN ---
Subjective Subjective Remarks The patient feels well today. He denies any chest pain, shortness breath, or palpitations. He is currently in rapid A. fib, rate 110-130. Does have a history of A. fib and previously was on Eliquis. RN at bedside. Objective Medications Current Medications Medications (Trade) Dose Ordered Sig/Bear Route Start Time Stop Time Status Last Admin (NS Flush) 2 ml UNSCH PRN IVF 03/14/17 10:30 (Aspirin Chew) 81 mg DAILY PO 03/15/17 09:00 03/15/17 09:18 (Plavix) 75 mg DAILY PO 03/15/17 09:00 03/15/17 09:18 (Tylenol) 325 mg Q4H PRN PO 03/14/17 11:45 03/16/17 00:35 (Restoril) 15 mg HS PRN PO 03/14/17 21:00 (Atropine Inj) 0.5 mg UNSCH PRN IV PUSH 03/14/17 11:45 (Zofran Inj) 4 mg Q4H PRN IV PUSH 03/14/17 11:45 03/14/17 21:32 ([place] 5-325 Mg) 1 tab TID PRN PO 03/14/17 22:00 03/15/17 14:42 (Prinivil) 10 mg DAILY PO 03/15/17 09:00 03/15/17 09:18 (Lopressor) 50 mg Q12HR PO 03/15/17 09:00 03/15/17 20:47 (Protonix) 40 mg DAILY PO 03/15/17 09:00 03/15/17 09:18 (Proair Hfa Inh) 2 puff Q4H PRN INH 03/15/17 08:45 (Lipitor) 40 mg DAILY PO 03/15/17 09:00 03/15/17 09:17 Vital Signs / I&O Vital Signs Date Time Temp Pulse Resp B/P (MAP) Pulse Ox O2 Delivery O2 Flow Rate FiO2 03/16/17 06:03 99.1 102 16 107/74 (85) 97 03/16/17 06:00 102 03/16/17 05:00 104 03/16/17 04:00 102 03/16/17 03:00 97 03/16/17 02:00 98 03/16/17 01:00 86 03/16/17 00:32 100.3 96 16 127/86 (100) 96 03/16/17 00:00 92 03/15/17 23:00 88 03/15/17 22:00 96 03/15/17 21:00 96 03/15/17 20:29 99.0 94 16 126/87 (100) 95 03/15/17 20:00 94 03/15/17 19:00 84 03/15/17 18:00 104 03/15/17 17:00 104 03/15/17 16:00 102 03/15/17 15:00 98.7 84 20 129/99 (109) 96 03/15/17 15:00 87 03/15/17 14:00 82 03/15/17 13:00 94 03/15/17 12:00 84 03/15/17 11:00 98.6 81 18 119/81 (94) 96 03/15/17 11:00 79 03/15/17 10:00 106 03/15/17 09:00 84 03/15/17 08:00 80 03/15/17 07:43 78 03/15/17 07:43 98.1 84 18 133/84 (100) 94 I/O 03/15/17 03/15/17 03/15/17 03/16/17 03/16/17 03/16/17 07:00 15:00 23:00 07:00 15:00 23:00 Intake Total 420 ml 480 ml 680 ml Output Total 300 ml 300 ml 275 ml Balance 120 ml 180 ml 405 ml Intake Oral 420 ml 480 ml 680 ml Output Urine Total 300 ml 300 ml 275 ml # Voids 3 # Bowel Movements 0 0 Physical Exam GENERAL: Well-developed well-nourished. In no acute distress. NECK: No carotid bruits. No JVD. CARDIOVASCULAR: Slightly tachycardic irregular rate and irregular rhythm. No murmur appreciated. RESPIRATORY: No accessory muscle use. Clear to auscultation. Breath sounds equal bilaterally. MUSCULOSKELETAL: No clubbing or cyanosis. No edema. NEUROLOGICAL: Awake and alert. Normal speech. Imaging Last Impressions Chest X-Ray 03/14/17 1017 Signed Impressions: Service Date/Time: Tuesday, March 14, 2017 10:21 - CONCLUSION: 1. Moderate elevation of the left hemidiaphragm with mild gaseous distention in the region the splenic flexure. 2. No confluent infiltrates or effusions. Tim Mathew MD Assessment and Plan Assessment and Plan 67-year-old male with a past medical history of HTN, HLD presented as a STEMI alert s/p PCI and stenting of occluded LAD lesion STEMI: Doing well. Continue aspirin, Plavix, beta kody, statin. Atrial fibrillation: Rate currently not controlled. Currently on metoprolol 50 mg twice a day. Previously on Eliquis in the past. Hypertension: BP is soft on home metoprolol and lisinopril. Fredrick Lamas Mar 16, 2017 07:35
[2017-03-16] MEDS: ASPIRIN 81 MG CHEW TAB PO SCH (09:00)
[2017-03-16] MEDS: METOPROLOL TARTRATE 50 MG TAB PO SCH (09:00)
[2017-03-16] MEDS: CLOPIDOGREL 75 MG TAB PO SCH (09:00)
[2017-03-16] MEDS: ATORVASTATIN 40 MG TAB PO SCH (09:00)
[2017-03-16] MEDS: LISINOPRIL 10 MG TAB PO SCH (09:00)
[2017-03-16] MEDS: PANTOPRAZOLE SOD 40 MG DELAYED RELEASE TAB PO SCH (09:00)
== END 2017-03-16 10:05 | disposition home or self-care (01) | DRG 247 ==
LOC: NEPE 10:50 → HCPC 14:59
PROVIDERS: ADMIT Internal Medicine Cardiovascular Disease; ATTEND Internal Medicine Cardiovascular Disease
PROC: 027034Z Dilation of Coronary Artery, One Artery with Drug-eluting Intraluminal Device, Percutaneous Approach (ICD-10-PCS; principal; 2017-03-14)
PROC: 4A023N7 Measurement of Cardiac Sampling and Pressure, Left Heart, Percutaneous Approach (ICD-10-PCS; 2017-03-14)
PROC: B2111ZZ Fluoroscopy of Multiple Coronary Arteries using Low Osmolar Contrast (ICD-10-PCS; 2017-03-14)
DX: I21.09 ST elevation (STEMI) myocardial infarction involving other coronary artery of anterior wall (principal); I48.91 Unspecified atrial fibrillation; I10 Essential (primary) hypertension; E78.5 Hyperlipidemia, unspecified; I25.10 Atherosclerotic heart disease of native coronary artery without angina pectoris; N40.0 Benign prostatic hyperplasia without lower urinary tract symptoms; J45.909 Unspecified asthma, uncomplicated; Z79.01 Long term (current) use of anticoagulants
CPT/HCPCS: 71010; 80048; 80061; 82310; 82435; 82550; 82552; 82565; 82947; 83735; 83880; 84132; 84295; 84484; 84520; 85002; 85025; 85610; 85730; 92941; 93005; 93306; 93454; 96374; C1725; C1769; C1874; C1887; C1893; J1644; J2270; J2405; J7030; Q9967

== ENCOUNTER 2017-04-15 19:30 | Emergency (ER) | payer MEDICARE ==
[~2017-04-15 19:30] MED LIST changes: +ADAL60TA PO
[2017-04-15 19:44] VITALS: BP 129/80; PULSE 90; RESP 20; TEMP 98.7; O2SAT 97
[2017-04-15] MEDS ORDERED: CYCL10TA PO (22:31)
[2017-04-15] MEDS ORDERED: DIGO0.12 PO (22:31)
[2017-04-15] MEDS ORDERED: FLUT50SP EACH NARE (22:31)
[2017-04-15] MEDS ORDERED: TOVI4TAB PO (22:31)
[2017-04-15] MEDS ORDERED: ATOR40TA16 PO (22:31)
[2017-04-15] MEDS ORDERED: PLAV75TA29 PO (22:31)
[2017-04-15] MEDS ORDERED: VENTAER INH (22:31)
[2017-04-15] MEDS ORDERED: METO50TA PO (22:38)
[2017-04-15] MEDS ORDERED: PROT40TA PO (22:38)
[2017-04-15] MEDS ORDERED: CLAR10CA3 PO (22:38)
[2017-04-15] MEDS ORDERED: COLA100C5 PO (22:38)
[2017-04-15] MEDS ORDERED: HYDR-3516 PO (22:38)
[2017-04-15] MEDS ORDERED: COZA100T PO (22:38)
--- NOTE | 2017-04-15 22:38 | PD ---
HPI . dental Chief Complaint: Oral / Dental Pain or Problem Time Seen by Provider: 22:34 Travel History International Travel<30 days: No Contact w/Intl Traveler<30days: No Traveled to known affect area: No History of Present Illness HPI 67-year-old male presents to the emergency department for complaint of tender right submandibular mass and swelling. No fever no chills no nausea no vomiting no dentalgia no trismus. Patient is presently on aspirin and Plavix as he is [address] elevation [place]. Patient has been seen by his dentist recently who felt that he needed no dental intervention on routine visit. Patient states that symptoms began today and seemed to have worsened. Patient rates his discomfort as moderate and worsened with palpation. Patient has taken no medication for symptom relief. Patient denies other concerns or complaints. PFSH Past Medical History Narrative Medical CAD, [place], cardiac catheterization with stent, hypertension, dyslipidemia; laminectomy cholecystectomy tonsillectomy; occasional alcohol use: Nursing notes reviewed Asthma: Yes Anxiety: No Depression: No Cancer: No Cardiovascular Problems: Yes Chemotherapy: No COPD: No Cerebrovascular Accident: No Diabetes: No Diminished Hearing: No Endocrine: No Glaucoma: No Genitourinary: Yes (BPH) Hepatitis: No Hiatal Hernia: No Hypertension: Yes Immune Disorder: No Musculoskeletal: Yes (BACK) Neurologic: No Psychiatric: No Reproductive: No Respiratory: Yes (ASTHMA) Migraines: No Radiation Therapy: No Seizures: No Sickle Cell Disease: No Sleep Apnea: No Thyroid Disease: No Past Surgical History Abdominal Surgery: Yes (LAP SYLVIA) AICD: No Arteriovenous Shunt: No Body Medical Devices: SCREWS BACK Cardiac Surgery: No Cholecystectomy: Yes (1999) Ear Surgery: No Endocrine Surgery: Yes Eye Surgery: No Genitourinary Surgery: Yes (08/23/10 CYSTOSCOPY TUR PROSTATE) Gynecologic Surgery: No Insulin Pump: No Joint Replacement: No Oral Surgery: Yes (T&A) Pacemaker: No Thoracic Surgery: No Other Surgery: Yes (gallbaldder x20 years) Social History Alcohol Use: Yes (STOPPED DRINKING BEER 2002) Tobacco Use: No Substance Use: No Allergies-Medications (Allergen,Severity, Reaction): Coded Allergies: No Known Allergies (Verified Allergy, Unknown, 04/16/17) Reported Meds & Prescriptions Reported Meds & Active Scripts Active Augmentin (Amoxicillin-Clavulanate) 875-125 Mg Tab 1 Tab PO BID 10 Days Percocet (Oxycodone-Acetaminophen) 5-325 mg Tab 1 Tab PO Q6H PRN Reported Aspirin Low Dose (Aspirin) 81 Mg Chew 81 Mg CHEW DAILY Protonix (Pantoprazole Sodium) 40 Mg Tab 40 Mg PO DAILY Colace (Docusate Sodium) 100 Mg Capsule 1 Tab PO DAILY Metoprolol Tartrate 50 Mg Tab 50 Mg PO BID Cozaar (Losartan Potassium) 100 Mg Tab 100 Mg PO DAILY Claritin (Loratadine) 10 Mg Cap 10 Mg PO DAILY Hydrocodone-Acetaminophen 5-325 mg Tab 1 Tab PO Q4H PRN Fluticasone Nasal [place] 50 Mcg/Act Naspr 50 Mcg EACH NARE BID 50 mcg/spray Toviaz ER (Fesoterodine Fumarate) 4 mg Lulu 4 Mg PO DAILY Digoxin 0.125 Mg Tab 0.125 Mg PO DAILY Flexeril (Cyclobenzaprine HCl) 10 Mg Tab 10 Mg PO TID Atorvastatin (Atorvastatin Calcium) 40 Mg Tab 40 Mg PO DAILY Plavix (Clopidogrel Bisulfate) 75 Mg Tab 75 Mg PO DAILY Ventolin Hfa 18 GM Inh (Albuterol Sulfate) 90 Mcg/Act Aer 2 Puff INH Q4H PRN Adalat CC (Nifedipine) 60 Mg Tab 60 Mg PO DAILY Review of Systems Except as stated in HPI: all other systems reviewed are Neg Physical Exam Narrative GENERAL: Well-developed well-nourished male in no acute distress no respiratory distress SKIN: Warm and dry. HEAD: Normocephalic. EYES: No scleral icterus. No injection or drainage. ENT: Airway is patent mucous members moist dentition intact right submandibular mass tenderness without fluctuance non-fixed. No redness no increased warmth. NECK: Supple, trachea midline. No JVD or lymphadenopathy. CARDIOVASCULAR: Regular rate and rhythm without murmurs, gallops, or rubs. RESPIRATORY: Breath sounds equal bilaterally. No accessory muscle use. GASTROINTESTINAL: Abdomen soft, non-tender, nondistended. MUSCULOSKELETAL: No cyanosis, or edema. BACK: Nontender without obvious deformity. No CVA tenderness. Data Data Last Documented VS Vital Signs Date Time Temp Pulse Resp B/P (MAP) Pulse Ox O2 Delivery O2 Flow Rate FiO2 04/16/17 02:05 04/16/17 01:19 63 16 99 Room Air 04/15/17 19:44 98.7 Orders Orders Basic Metabolic Panel (Bmp) (1/28/18 22:34) Complete Blood Count With Diff (04/15/17 22:34) Ct Soft Tiss Neck W Iv Cont (04/15/17 22:34) Iv Access Insert/Monitor (04/15/17 22:34) Acetaminophen (Tylenol) (04/15/17 22:45) Sodium Chloride 0.9% Flush (Ns Flush) (04/15/17 22:45) Iohexol 350 Inj (Omnipaque 350 Inj) (04/15/17 23:56) Clindamycin 900 Mg/Ns Premix (Cleocin 90 (04/16/17 01:30) Ketorolac Inj (Toradol Inj) (04/16/17 01:30) Labs Laboratory Tests Test 04/15/17 22:45 White Blood Count 4.9 TH/MM3 Red Blood Count 3.87 MIL/MM3 Hemoglobin 11.6 GM/DL Hematocrit 35.7 % Mean Corpuscular Volume 92.3 FL Mean Corpuscular Hemoglobin 30.0 PG Mean Corpuscular Hemoglobin Concent 32.5 % Red Cell Distribution Width 12.2 % Platelet Count 113 TH/MM3 Mean Platelet Volume 9.6 FL Neutrophils (%) (Auto) 54.0 % Lymphocytes (%) (Auto) 33.4 % Monocytes (%) (Auto) 8.1 % Eosinophils (%) (Auto) 3.0 % Basophils (%) (Auto) 1.5 % Neutrophils # (Auto) 2.6 TH/MM3 Lymphocytes # (Auto) 1.7 TH/MM3 Monocytes # (Auto) 0.4 TH/MM3 Eosinophils # (Auto) 0.1 TH/MM3 Basophils # (Auto) 0.1 TH/MM3 CBC Comment DIFF FINAL Differential Comment Blood Urea Nitrogen 16 MG/DL Creatinine 1.10 MG/DL Random Glucose 96 MG/DL Calcium Level 9.6 MG/DL Sodium Level 143 MEQ/L Potassium Level 4.1 MEQ/L Chloride Level 111 MEQ/L Carbon Dioxide Level 24.8 MEQ/L Anion Gap 7 MEQ/L Estimat Glomerular Filtration Rate 81 ML/MIN MDM Medical Decision Making Medical Screen Exam Complete: Yes Emergency Medical Condition: Yes Medical Record Reviewed: Yes Interpretation(s) Last Impressions Neck CT 04/15/174 Signed Impressions: Service Date/Time: Saturday, April 15, 2017 23:54 - CONCLUSION: 1. Mild inflammatory changes over the inferior right parotid gland and extending into the retromandibular and submandibular region. Differential diagnosis includes cellulitis or possibly a sialadenitis involving inferior right parotid gland. No adenopathy or loculated fluid collections to suggest abscess. Remainder of exam unremarkable. Lavell Anaya MD CBC & BMP Diagram 04/15/17 22:45 Calcium Level 9.6 Vital Signs Date Time Temp Pulse Resp B/P (MAP) Pulse Ox O2 Delivery O2 Flow Rate FiO2 04/16/17 02:05 04/16/17 01:19 63 16 146/99 (115) 99 Room Air 04/16/17 00:11 67 16 151/98 (115) 99 Room Air 04/15/17 22:56 66 140/92 (108) 98 Room Air 04/15/17 19:44 98.7 90 20 129/80 (96) 97 Differential Diagnosis mass, sialadenitis, lymphadenopathy, abscess, mumps Narrative Course Lab values in normal range Imaging suspicious for sialadenitis Patient given Toradol and acetaminophen with symptomatic relief; patient stable for outpatient management and close follow-up with primary care provider; patient encouraged to return immediately to the emergency department for any concerns or worsening of condition Diagnosis Primary Impression: Sialadenitis Referrals: Primary Care Physician 1 day Patient Instructions: General Instructions Additional Instructions: Follow-up with primary care provider Return to the emergency for any concerns or change in condition Increase fluid hydration Complete course of antibiotic as prescribed Continue chronic medications as chronically prescribed Apply warm compresses to the area for comfort Take acetaminophen/Tylenol for fever 100.4F or greater or for minor pain May take Percocet as prescribed as needed for pain greater than 5/10 in intensity Med/Other Pt SpecificInfo: Prescription(s) given Scripts Amoxicillin-Clavulanate (Augmentin) 875-125 Mg Tab 1 TAB PO BID for Infection for 10 Days, #20 TAB 0 Refills Prov: Olive Reynolds MD 04/16/17 Oxycodone-Acetaminophen (Percocet) 5-325 mg Tab 1 TAB PO Q6H Y for PAIN, #7 TAB 0 Refills Prov: Olive Reynolds MD 04/16/17 Disposition: DISCHARGE HOME Condition: Stable Olive Reynolds MD Apr 15, 2017 22:38
[2017-04-15] MEDS ORDERED: ASPI81CH6 CHEW (22:39)
[2017-04-15] MEDS ORDERED: ACETAMINOPHEN 325 MG TAB PO ONE (22:45)
[2017-04-15] MEDS ORDERED: SODIUM CHLORIDE 0.9% FLUSH 10 ML FLUSH IVF PRN (22:45)
[2017-04-15 22:56] VITALS: BP 140/92; PULSE 66; O2SAT 98
[2017-04-15 23:17] LABS: AUTOMATED NEUTROPHIL # 2.6 TH/MM3 (1.8-7.7); BASOPHIL # 0.1 TH/MM3 (0-0.2); BASOPHIL % 1.5 % (0.0-2.0); EOSINOPHIL # 0.1 TH/MM3 (0-0.4); HEMATOCRIT 35.7 % (39.0-51.0); HEMOGLOBIN 11.6 GM/DL (13.0-17.0); LYMPH % 33.4 % (9.0-44.0); LYMPHOCYTE # 1.7 TH/MM3 (1.0-4.8); MEAN CELL VOLUME 92.3 FL (80.0-100.0); MEAN CORPUSCULAR HGB CONC 32.5 % (32.0-36.0); MEAN PLATELET VOLUME 9.6 FL (7.0-11.0); MONO % 8.1 % (0.0-8.0); MONOCYTE # 0.4 TH/MM3 (0-0.9); PLATELET COUNT 113 TH/MM3 (150-450); RED BLOOD COUNT 3.87 MIL/MM3 (4.50-5.90); RED CELL DISTRIBUTION WIDTH 12.2 % (11.6-17.2); WHITE BLOOD COUNT 4.9 TH/MM3 (4.0-11.0)
[2017-04-15 23:31] LABS: BICARBONATE 24.8 MEQ/L (21.0-32.0); CALCIUM 9.6 MG/DL (8.5-10.1)
[2017-04-15 23:35] LABS: CREATININE 1.1 MG/DL (0.60-1.30)
[2017-04-15] MEDS ORDERED: IOHEXOL 350 MG/ML 10 ML VIAL (for RAD DIAG) IVCONTRAST ONE (23:56)
[2017-04-16 00:11] VITALS: BP 151/98; PULSE 67; RESP 16; O2SAT 99
--- NOTE | 2017-04-16 00:45 | RADRPT ---
EXAM DATE/TIME: 04/15/2017 23:54 [facility] COMPARISON: No previous studies available for comparison. INDICATIONS : Right submandibular swelling and pain. IV CONTRAST: 75 cc Omnipaque 350 (iohexol) IV RADIATION DOSE: 15.21 CTDIvol (mGy) MEDICAL HISTORY : Cardiovascular disease. SURGICAL HISTORY : Coronary artery stent. ENCOUNTER: Initial ACUITY: 2 days PAIN SCALE: 6/10 LOCATION: Right neck TECHNIQUE: Volumetric scanning of the neck was performed. Using automated exposure control and adjustment of th e mA and/or kV according to patient size, radiation dose was kept as low as reasonably achievable to obtain optimal diagnostic quality images. DICOM format image data is available electronically for r eview and comparison. FINDINGS: Mild inflammatory changes in the subcutaneous tissues of the inferior aspect of the right parotid gla nd and extending into the submandibular region. No discrete or drainable fluid collections. No pathol ogically enlarged lymph nodes. No acute bony abnormalities. Visualized sinuses are clear. CONCLUSION: 1. Mild inflammatory changes over the inferior right parotid gland and extending into the retromandib ular and submandibular region. Differential diagnosis includes cellulitis or possibly a sialadenitis involving inferior right parotid gland. No adenopathy or loculated fluid collections to suggest absce ss. Remainder of exam unremarkable. Lavell Anaya MD on April 16, 2017 at 0:39 Board Certified Radiologist. This report was verified electronically.
[2017-04-16 01:19] VITALS: BP 146/99; PULSE 63; RESP 16; O2SAT 99
[2017-04-16] MEDS ORDERED: AUGM875T3 PO (01:21)
[2017-04-16] MEDS ORDERED: PERC5TAB12 PO (01:21)
[2017-04-16] MEDS ORDERED: KETOROLAC TROMETHAMINE 30 MG/ML (IVP) VIAL IV PUSH ONE (01:30)
[2017-04-16] MEDS ORDERED: CLINDAMYCIN 900 MG/NS PREMIX 50 ML IV ONE (01:30)
== END 2017-04-16 02:05 | disposition home or self-care (01) ==
LOC: PHED 19:30
DX: K11.20 Sialoadenitis, unspecified (principal); I25.10 Atherosclerotic heart disease of native coronary artery without angina pectoris; J45.909 Unspecified asthma, uncomplicated; I10 Essential (primary) hypertension; N40.0 Benign prostatic hyperplasia without lower urinary tract symptoms; I25.2 Old myocardial infarction; E78.5 Hyperlipidemia, unspecified; Z79.82 Long term (current) use of aspirin; Z79.02 Long term (current) use of antithrombotics/antiplatelets
CPT/HCPCS: 70491; 80048; 85025; 96365; 96375; 99285; J1885; Q9967

== ENCOUNTER 2017-09-03 06:50 | Day surgery (SDC) | payer MEDICARE ==
[2017-09-03] VITALS (16 sets, daily range): BP systolic 116–135; BP diastolic 83–91; PULSE 53–68; RESP 16–18; TEMP 97.5–98.8; O2SAT 97–100
[~2017-09-03] VITALS: Ht 185.4 cm; Wt 88.0 kg
[~2017-09-03 06:50] MED LIST changes: -ALBU17I PO; -ALBU8I INH; -APIX5TAB PO; +ASPI81CH6 CHEW; -ATOR40TA PO; +ATOR40TA16 PO; +AUGM875T3 PO; +CLAR10CA3 PO; +COLA100C5 PO; -CYCL-36 PO; +CYCL10TA PO; -FLON0.053 INH; +FLUT50SP EACH NARE; +HYDR-3516 PO; -LORA10TA7 PO; -LORT5TAB PO; -METO100T PO; +METO50TA PO; +PERC5TAB12 PO; +PLAV75TA29 PO; -STOO100T PO; +VENTAER INH; -VITA100020 PO; -VITA20003 PO
[2017-09-03] MEDS ORDERED: CHLORHEXIDINE GLUCONATE 2 % 1 PACK (2 CLOTHS) TOPICAL PRN (07:30)
[2017-09-03] MEDS ORDERED: MUPIROCIN 2% OINT 1 APPLIC/GM SYR NASAL SCH (07:30)
[2017-09-03] MEDS ORDERED: Hold AM Insulin & AM Hypoglycemic medications in diabetic patients PRN (07:30)
[2017-09-03] MEDS ORDERED: POVIDONE IODINE 5% (ANTISEPSIS KIT) 4 APPLICATIONS EACH NARE PRN (07:30)
[2017-09-03] MEDS ORDERED: 1/2 NS 1000 ML IV SCH (07:30)
[2017-09-03] MEDS ORDERED: LACTATED RINGER'S 1000 ML IV PRN (07:30)
[2017-09-03] MEDS ORDERED: CHLORHEXIDINE GLUCONATE 2 % 1 PACK (2 CLOTHS) TOPICAL SCH (07:30)
[2017-09-03] MEDS ORDERED: LORazepam 1 MG TAB SL SCH (07:30)
[2017-09-03] MEDS ORDERED: SODIUM CHLORID 0.9% 500 ML IV PRN (07:30)
[2017-09-03] MEDS ORDERED: METOPROLOL TARTRATE 25 MG TAB PO PRN (07:30)
[2017-09-03] MEDS ORDERED: ceFAZolin 2 GM PREMIX 50 ML IV SCH (07:30)
[2017-09-03] MEDS ORDERED: VANCOMYCIN 1000 MG/NS 250 ML IV SCH ×4 (07:30)
[2017-09-03] MEDS ORDERED: NS 1000 ML IV SCH (07:30)
[2017-09-03] MEDS ORDERED: CLINDAMYCIN 900 MG/NS 100 ML IV SCH ×2 (07:30)
[2017-09-03] MEDS ORDERED: POVIDONE IODINE 5% (ANTISEPSIS KIT) 4 APPLICATIONS EACH NARE SCH (07:30)
[2017-09-03] MEDS ORDERED: NO Heparin, Lovenox, Coumadin at least 12 hours prior to procedure. PRN (07:30)
[2017-09-03 08:20] LABS: AUTOMATED NEUTROPHIL # 1.6 TH/MM3 (1.8-7.7); BASOPHIL % 0.3 % (0.0-2.0); EOSINOPHIL # 0.2 TH/MM3 (0-0.4); EOSINOPHIL % 4.3 % (0.0-4.0); HEMATOCRIT 38.1 % (39.0-51.0); HEMOGLOBIN 12.4 GM/DL (13.0-17.0); LYMPH % 43.8 % (9.0-44.0); LYMPHOCYTE # 1.7 TH/MM3 (1.0-4.8); MEAN CELL VOLUME 91.6 FL (80.0-100.0); MEAN CORPUSCULAR HEMOGLOBIN 29.7 PG (27.0-34.0); MEAN CORPUSCULAR HGB CONC 32.5 % (32.0-36.0); MEAN PLATELET VOLUME 9.9 FL (7.0-11.0); MONO % 9.2 % (0.0-8.0); MONOCYTE # 0.3 TH/MM3 (0-0.9); NEUT % 42.4 % (16.0-70.0); PLATELET COUNT 109 TH/MM3 (150-450); RED BLOOD COUNT 4.16 MIL/MM3 (4.50-5.90); RED CELL DISTRIBUTION WIDTH 12.7 % (11.6-17.2); WHITE BLOOD COUNT 3.8 TH/MM3 (4.0-11.0)
[2017-09-03] MEDS ORDERED: SACU1TAB7 PO (08:22)
[2017-09-03 08:30] LABS: BICARBONATE 24.7 MEQ/L (21.0-32.0)
[2017-09-03 08:31] LABS: CREATININE 1.06 MG/DL (0.60-1.30)
[2017-09-03 08:37] LABS: INTERNATIONAL NORMALIZED RATIO 1.1 RATIO; PROTHROMBIN TIME - PATIENT 10.8 SEC (9.8-11.6)
[2017-09-03] MEDS ORDERED: ISOPROTERENOL INJ PREMIX 50 ML IV ONE (08:39)
[2017-09-03] MEDS ORDERED: VANCOMYCIN 500 MG VIAL ONE (08:40)
[2017-09-03] MEDS ORDERED: HEPARIN-NS/PF INJ 500 ML ONE (08:40)
[2017-09-03] MEDS ORDERED: LIDOCAINE HCL 2% 20 ML VIAL ONE (08:40)
--- NOTE | 2017-09-03 10:06 | CATHPROC ---
[employer] HIS Report Study Information Study Number Admission Scheduled Start Study Start [id number] Sep 03 2017 6:50AM 09/03/2017 Sep 03 2017 8:09AM [place] [facility] Cardiac Pacer/ICD Admit Source Facility Department Other [facility] - Internet Marketing Executive Physician and Clinical Staff Initial Mode [place]jas Clipping Marker Christian Lee,RT(R) Other Anesthesia, UNIT AIDE TECH Recorder Jaqui Ro BSN Scrub Angelica Aburto RCIS Equipment Time Emergency Medical Service Manager Description Size Mfg Part Number Used/Scraped [id number] 08:11 [employer] BLANKET,WARM AIR CCL * Used *[id number] 08:11 [employer] PACK, CCL CUSTOM * Used *[id number] 08:11 [place] PACER CADE, LIMB * 2530 *[id number] Used [id number] 09:43 [employer] MEDICAL CATHETER, JSN, QUAD FR 5 Used *[id number] 09:43 [employer] MEDICAL CATHETER, JSN, QUAD FR 5 Used *[id number] 09:44 [employer] MEDICAL CATHETER, JSN, QUAD FR 5 Used *[id number] 09:44 [employer] MEDICAL CATHETER, JSN, QUAD FR 5 Used *[id number] [id number] 09:40 [employer] CINTHYA MEDICAL SHEATH, EPS, FR5 FAST CATH FR 5 Used *[id number] 09:40 [employer] C[employer]TH[employer] MEDICAL SHEATH, EPS, FR5 FAST CATH FR 5 Used *[id number] [id number] 09:40 [employer] C[employer]THYA MEDICAL SHEATH, EPS, FR5 FAST CATH FR 5 Used *[id number] 537110 09:40 [employer] C[employer]TH[employer] MEDICAL SHEATH, EPS, FR6 FAST CATH FR 6 Used *[id number] Labs Hgb (g/dl) Hct (%) WBC (l/cumm) Platelets (thousands) 11.60-17.00 35.00-51.00 4.00-11.00 150.00-450.00 12.4 38.1 3.8 109 Glucose (mg/dl) BUN (mg/dl) Creatinine (mg/dl) BUN:Creatinine (1:x) 74.00-106.00 7.00-18.00 0.50-1.30 10.00-20.00 93 12 1.0 12 Na (meq/l) K (meq/l) 136.00-145.00 3.50-5.10 148 4.3 INR (PTT:PT) 0.90-1.10 1.1 CPK-MB (ng/ML) 0.50-3.60 Not Drawn Medication Medication Total Dose (Bolus/Oral) Medication Total Dosage/Unit 1% XYLOCAINE 20 mL Medications (Bolus/Oral) Medication Time Given Dosage/Unit Administered By Reason 1% XYLOCAINE 09/03/2017 9:37:30 AM 20 mL Mode Foote 20 mL 1% XYLOCAINE given in lab by Mode Foote in Right Groin via Subcutaneous. Ordered by Terry Foote. Medication (Drip) Medication Time Given Dosage/Unit Concentration/Unit Diluent (ml) Solution ANCEF 09/03/2017 8:59:36 AM 2 g 2 g ANCEF given in lab by Anesthesia, UNIT AIDE TECH via Peripheral IV. Ordered by Mode Foote. ISUPREL 09/03/2017 9:58:30 AM 4 mcg/min 1 mg 250 NaCl .9 4 mcg/min ISUPREL given in lab by Anesthesia, UNIT AIDE TECH via Peripheral IV. Pump/Drip Flow = 60 ml/hr using NaCl .9 with a concentration of 1 mg in 250 ml. Ordered by Mode Foote. ISUPREL DRIP STOPPED 09/03/2017 10:02:17 AM 0 units/hr 0 0 units/hr ISUPREL DRIP STOPPED given in lab by Anesthesia, UNIT AIDE TECH. Pump/Drip Flow = 0 ml/hr using [Alyssa ution Name]. Ordered by Mode Foote. IV Solutions 09/03/2017 8:46:30 AM 50 mL (IV) NaCl .9 IV Solutions given by Anesthesia, UNIT AIDE TECH via Peripheral IV. Pump/Drip Flow using NaCl .9. Ordered by Mode Deal. at KVO IV Solutions 09/03/2017 8:46:44 AM 50 mL (IV) NaCl .9 IV Solutions given by Anesthesia, UNIT AIDE TECH via Peripheral IV. Pump/Drip Flow using NaCl .9. Ordered by Mode Deal. at KVO VANCOMYCIN DRIP 09/03/2017 8:37:47 AM 1 g 1 g VANCOMYCIN DRIP given in lab by Anesthesia, UNIT AIDE TECH via Peripheral IV. Ordered by Mode Foote. Initial Case Assessment Cardiovascular HR Rhythm NIBP Chest Pain 56 SB 138/93 0 Edema Present Skin color Skin None Normal Warm Dry Circulatory - Lower Extremities Color Lower Right Color Lower Left Normal Normal Neurological State Oriented to time-place- Alert Moves all extremities person Respiration - General Respiration Rate SpO2 (%) (B/min) 16 100 Chronological Log Time Study Chronological Log 8:30:13 Patient arrived via Bed. 8:30:17 Patient Name, D.O.B, / Armband Verified By R.N. 8:30:29 Anesthesia at bedside. Assumes care of patient. 8:34:21 Consent signed by the physician and the patient and verified by the Internet Marketing Executive staff. 8:34:25 Pre-op and post- op instructions given; patient acknowledges understanding of instructions. 8:34:36 Patient has been NPO for More than 6Hrs. 8:34:40 Skin Breakdown- none per patient 8:35:02 Trell Prominences Protected 8:35:57 Disposable Defibrillator Pads Placed On Patient. 8:36:51 Patient Warmer Placed on the Table. 8:37:40 Table restraints applied according to hospital policy 8:37:47 1 g VANCOMYCIN DRIP given in lab by Anesthesia, UNIT AIDE TECH via Peripheral IV. Ordered by Terry Foote. 8:45:10 A # 20 IV was noted in the Antecubital (left). Grade = 0 8:46:23 A # 20 IV was noted in the Antecubital (right). Grade = 0 IV Solutions given by Anesthesia, UNIT AIDE TECH via Peripheral IV. Pump/Drip Flow using NaCl .9. Ordered by Hanscy. Dary at 8:46:30 KVO IV Solutions given by Anesthesia, UNIT AIDE TECH via Peripheral IV. Pump/Drip Flow using NaCl .9. Ordered by Hanscy. Dary at 8:46:44 KVO 8:47:05 History and physical on the chart or being dictated. Assessment: Initial Case, HR=56 BPM, Rhythm=SB, IMUU=456/93 mmhg, Chest Pain=0, Edema=None, Col or=Normal, Skin = Warm, Dry Lower Right Extremities: Color=Normal 8:47:07 Lower Left Extremities: Color=Normal Neurological: State=Alert, Ox3, MALIK Respiration: Resp=16 B/min, DdP1=528 % 8:59:36 2 g ANCEF given in lab by Anesthesia, UNIT AIDE TECH via Peripheral IV. Ordered by Mode Foote. 9:12:23 Anesthesia at bedside for insertion of LMA 9:13:02 MD paged 9:24:58 MD arrived. Time Out. Correct patient, procedure, procedure equipment, site and side verified with physicia n present. Time 9:36:20 concurred by MD, individual staff and UNIT AIDE TECH. Time Out #2 - Consents verified, patient in correct position, all results are labled and displa yed, safety precautions 9:36:21 taken, antibiotics administered. Time out concurred by MD, individual staff and UNIT AIDE TECH in procedu re 9:36:51 Case Start 9:37:30 20 mL 1% XYLOCAINE given in lab by Mode Foote in Right Groin via Subcutaneous. Ordered by Mode Foote. 9:39:23 Vascular access was obtained in the Fem Vein (right). 9:39:31 Vascular access was obtained in the Fem Vein (right). 9:39:35 Vascular access was obtained in the Fem Vein (right). 9:39:38 Vascular access was obtained in the Fem Vein (right). 9:42:34 A SHEATH, EPS, FR5 FAST CATH FR 5 was advanced into the Fem Vein (right) using the Percutane ous technique. 9:42:38 A SHEATH, EPS, FR5 FAST CATH FR 5 was advanced into the Fem Vein (right) using the Percutane ous technique. 9:42:41 A SHEATH, EPS, FR5 FAST CATH FR 5 was advanced into the Fem Vein (right) using the Percutane ous technique. 9:42:43 A SHEATH, EPS, FR6 FAST CATH FR 6 was advanced into the Fem Vein (right) using the Percutane ous technique. A CATHETER, JSN, QUAD FR 5 was advanced vis Fem Vein (right) and placed in the CS. Placement wa s visually 9:42:50 confirmed under fluoroscopy. A CATHETER, JSN, QUAD FR 5 was advanced vis Fem Vein (right) and placed in the HIS. Placement w as visually 9:43:15 confirmed under fluoroscopy. A CATHETER, JSN, QUAD FR 5 was advanced vis Fem Vein (right) and placed in the HRA. Placement w as visually 9:43:24 confirmed under fluoroscopy. A CATHETER, JSN, QUAD FR 5 was advanced vis Fem Vein (right) and placed in the RVA. Placement w as visually 9:43:38 confirmed under fluoroscopy. 9:43:56 EP study in progress 4 mcg/min ISUPREL given in lab by Anesthesia, UNIT AIDE TECH via Peripheral IV. Pump/Drip Flow = 60 ml/hr using NaCl .9 with 9:58:30 a concentration of 1 mg in 250 ml. Ordered by Mode Foote. 0 units/hr ISUPREL DRIP STOPPED given in lab by Anesthesia, UNIT AIDE TECH. Pump/Drip Flow = 0 ml/hr in g [Solution Name]. 10:02:17 Ordered by Mode Foote. 10:02:27 EP study complete 10:02:50 EP Procedure was performed. 10:03:16 Case End (Physician broke scrub) 10:04:11 NOTE: This patient is undergoing an additional procedure while still in the Cardiac Cath La b. 10:04:52 No case complications noted. 10:04:53 Cine recording checked. 10:05:23 Catheter(s) removed without difficulty 10:06:36 Sheath(s) left in place, will be removed in Holding Area End Study - Contrast Media Used In Study Contrast Total Opened (mL) Total Used (mL) Total Wasted (mL) Omnipaque 0 0 0 End Study - Maximum Contrast Load Max Contrast Load (mL) 439.1 End Study - Radiation Exposure Fluoro Time (minutes) 0.9 End Study - Patient Disposition Complications No
--- NOTE | 2017-09-03 11:33 | PD.CARD ---
SINGLE CHAMBER DEFIB IMPLANT PROCEDURE DATE: Sep 03, 2017 NYHA Classification: Class II (Mild) Prevention: Primary Single Chamber Defib Implant PROCEDURE: Single chamber defibrillator implantation. INDICATIONS: Mr. Villafuerte is a 67 -year-old male with hx of congestive heart failure, ejection fraction 20%, coronary artery disease, referred for defibrillator implantation for sudden prevention. The risks, the nature and the benefit of the procedure are clearly stated to him . Risks include pneumothorax, cardiac perforation, stroke and even . He understood and agreed to proceed. PROCEDURE: As written, informed consent was obtained was obtained prior to the electrophysiology study, the patient was kept to the table where he was prepped and draped in the sterile fashion. Conscious sedation was initiated and maintained throughout the procedure by anesthesiologist. Once sedation was verified, the left infraclavicular area was anesthetized with 2% Xylocaine. Using modified Seldinger technique, the left subclavian vein was cannulated on one occasion and one guide wire was advanced. Then, using #11 blade scalpel, a 3-cm incision was made two fingerbreadths below left clavicle. This incision was then taken down to the deep fascial layer using Bovie cautery and blunt dissection. Into the inferomedial direction, a device pocket was dissected, then the wire was dissected into the pocket. A 2-0 Vicryl suture was placed around the wires to prevent bleeding. At this point, over the wire, the 9- Mongolian dilator and introducer was advanced. As dilator and wire were removed, an active fixation right ventricular pacing, sensing and defibrillatory lead was advanced. After adequate pacing and sensing thresholds were obtained, the lead was secured in the pocket with #2 Ethibond suture. At that point, the pocket was copiously irrigated with antibiotic solution. The leads were connected to the generator and placed into the pocket. I did proceed with wound closure. The deep fascial layer was approximated with 2-0 Vicryl suture in a continuous fashion. The subcutaneous layer was approximated with 2-0 Vicryl suture in a continuous fashion. The subcuticular layer was approximated with 2-0 Vicryl suture in a continuous fashion. Dermabond adhesive was applied to the wound, followed by a sterile pressure dressing. There was no complication. The patient tolerated procedure. Blood loss minimal. 1. Implanted Hardware: The implanted defibrillator generator is a [employer], model number [id number], serial number [id number]. The right ventricular pacing, sensing and defibrillatory lead is a Medtronic model number 6935M-62, serial number [id number]. 2. Thresholds: The right ventricular pacing threshold in the bipolar mode was 0.8volts at 0.5 milliseconds, lead impedance 620 ohms and R-wave at 12.5 mV. 3. Settings: The device set in VVI 40 defibrillatory portion for two zones, one zone for ventricular tachycardia between 170 and 250 beats per minute. Initial therapy consists of one burst of ATP, one ramp, 81%, 10 pulse, 10 millisecond decremental, followed by 20, then 25 and all subsequent shocks at 35 joules defibrillatory shock, the second zone for ventricular fibrillation above 240 beats per minute, first therapy at 25 and all subsequent shocks at 35 joules defibrillatory shock. CONCLUSIONS: Successful defibrillator implantation. COMMENT AND RECOMMENDATIONS: The patient will be transferred to the telemetry unit, will be observed and when stable can be discharged home. Mode Foote MD Sep 03, 2017 11:33
[2017-09-03] MEDS ORDERED: DO NOT ADM ANY ANTICOAGULANT DRUGS PRN (11:36)
--- NOTE | 2017-09-03 11:38 | CATHPROC ---
[employer] HIS Report Study Information Study Number Admission Scheduled Start Study Start [id number] Sep 03 2017 6:50AM 09/03/2017 Sep 03 2017 10:06AM [place] [facility] Electrophysiology Study Admit Source Facility Department Other [facility] - [facility] Physician and Clinical Staff Initial Mode Riojas Network Firewall Engineer Christian Lee,RT(R) Other Anesthesia, RUBBER CUTTER Recorder Jaqui Ro ,GEOVANNYN Scrub Angelica Aburto,[place] Procedures Performed Procedure Lead Insertion Equipment Time Flat Clothier Description Size Mfg Part Number Used/Scraped DERMABOND, ADHESIVE SKIN [id number] 10:41 CORDIS/PACER * Used GLUE MINI *[id number] 10:41 Booster Pack BLANKET,WARM AIR CCL * Used *[id number] 10:41 Booster Pack SUTURE, STRIP PLUS 1/2" * Used *[id number] 10:41 [employer] PACER CADE, LIMB * 2530 *[id number] Used [id number] 10:41 [employer] PACER PACK, PACER CUSTOM * Used *[id number] 10:42 [employer] PACER SAFE SHEATH, FR9, 13CM FR 9 [id number] Used 10:25 Needle Sponge Count 2 2 Used 10:25 Needle Sponge Count 2 22 Used 10:25 Needle Sponge Count 30 1 Used SUTURE, 0 ETHIBOND [CT1] (CX21D), 8pk SUTURE, 2-0 VICRYL [CT1] ([id number]) SUTURE, 2-0 VICRYL [CT1] (CFF615A) [facility] PAD, ELECTROSURGICAL 10:41 * [id number] *[id number] Used SURGICAL GROUNDING ORANGE 10:48 VITATRON [employer] DEFIBRILLATOR, VISIA AF MRI VR VVEVVIR [id number] Use d LEAD, SPRINT QUATTRO SECURE [id number] 10:41 VITATRON [employer] 62CM Used S 62CM *[id number] 11:01 [employer]RON [employer] MONITOR, PACEMAKER\\ICD 09040 *[id number] Used [id number] 10:41 [employer] SANYA. / * Used *47267 Equipment Model, Serial, Lot Number and Expiration Data Description Model Number Serial Number Lot Number Expiration Date DEFIBRILLATOR, VISIA AF MRI VR [id number] 01-13-2019 LEAD, SPRINT QUATTRO SECURE S 6935m-62cm [id number] 05-17-2018 62CM Medication Medication Total Dose (Bolus/Oral) Medication Total Dosage/Unit 2% XYLOCAINE 20 mL Medications (Bolus/Oral) Medication Time Given Dosage/Unit Administered By Reason 2% XYLOCAINE 09/03/2017 10:37:09 AM 20 mL Mode Foote 20 mL 2% XYLOCAINE given in lab by Mode Foote via Subcutaneous. Ordered by Mode Foote. Chronological Log Time Study Chronological Log 10:07:11 Initial procedure has been completed. Beginning additional procedure. 10:07:14 NOTE: This patient is undergoing an additional procedure while still in the Cardiac Cath La b. 10:08:05 Bovie ground pad applied to: right thigh 10:08:18 2% CHLORHEXIDINE GLUCONATE WASH AND NASAL SWIPE DONE PRIOR TO PROCEDURE. 10:08:24 Pre-procedure assessment data was performed with the previous procedure. First Sponge And Instrument Count Done by Angelica Aburto RCIS. 10:24:52 Hypo's: 2, Sponges: 30, Bovie/scratch: 2 Sutures: 10, Blades: 1, Instruments: 26, Syveck Patches: ~SYVECK PATCH~ Verified with AM 10:25:28 Bilateral Upper Chest Prepped Times Two and draped after a 3 min dry time 10:37:07 Case Start 10:37:09 20 mL 2% XYLOCAINE given in lab by Mode Foote via Subcutaneous. Ordered by Mode Foote . 10:38:29 Vascular access was obtained in the Subclav. Vein (Lft. 10:39:20 Surgical Incision Made. 10:41:00 A pocket was created at the L Upper Chest. 10:42:14 A SAFE SHEATH, FR9, 13CM FR 9 was advanced into the Subclav. Vein (Lft using the Percutaneo us technique. 10:42:29 A LEAD, SPRINT QUATTRO SECURE S 62CM 62CM was inserted and positioned in the RV. 10:44:55 Lead placement verified under fluoroscopy 10:45:01 The RV lead impedance and threshold being tested. 10:47:21 The RV lead was sutured to the fascia. 10:48:34 A DEFIBRILLATOR, VISIA AF MRI VR VVEVVIR was connected and placed in the pocket. 10:48:40 The pocket is being closed. Second Sponge And Instrument Count Done by Angelica Aburto RCIS. 10:50:22 Hypo's: 2, Sponges: 30, Bovie/scratch: 2 Sutures: 10, Blades: 1, Instruments: 26, Syveck Patches: ~SYVECK PATCH~ Verified with AM 10:50:39 Implant Procedure was performed. 10:50:42 A ICD Implant . (Single) 10:53:47 No case complications noted. 10:53:49 Cine recording checked. 10:53:55 Implantable Device card placed in patient's chart. 11:07:53 PACU called. Spoke to Dia 11:11:30 The pocket was closed. 11:11:34 Case End (Physician broke scrub) 11:12:34 Steri-strips and a sterile dressing applied to site. Final Sponge And Instrument Count Done by Angelica Aburto RCIS. 11:13:40 Hypo's: 2, Sponges: 30, Bovie/scratch: 2 Sutures: 11, Blades: 1, Instruments: 26, Syveck Patches: ~SYVECK PATCH~ Verified with BL 11:23:15 Defibrillator and ground pads removed. Skin intact. 11:23:41 Patient moved to [facility] End Study - Contrast Media Used In Study Contrast Total Opened (mL) Total Used (mL) Total Wasted (mL) Omnipaque 0 0 0 End Study - Radiation Exposure Fluoro Time (minutes) 2.0 End Study - Patient Disposition Complications Transferred To Interventional Outcome No Telemetry Bed successful
--- NOTE | 2017-09-03 11:44 | PD.CARD ---
ELECTROPHYSIOLOGY STUDY PROCEDURE DATE: Sep 03, 2017 Prevention: Primary ELECTROPHYSIOLOGY STUDY NOTE PROCEDURE Electrophysiology study, coronary sinus cannulation, repeat electrophysiology on isuprel infusion. HISTORY Mr. Villafuerte is a 67 -year-old male with congestive heart failure , ischemic cardiomyopathy, ejection fraction 20% referred for electrophysiology study and defibrillator implantation for sudden primary prevention. The risks, the nature and the benefit of the procedure are clearly stated to him . Risks include pneumothorax, cardiac perforation, stroke and even . He understood and agreed to proceed. PROCEDURE NOTE After written informed consent was obtained, the patient was brought to the EP lab where he was prepped and draped in the usual sterile fashion. Conscious sedation was initiated and maintained throughout the procedure by anesthesiologist. Once sedation was verified, the right inguinal area was anesthetized with 2% Xylocaine. Using modified Seldinger technique, the right femoral vein was cannulated on four occasions and four guidewires were advanced. Then, over the wires three 5 Zambian and one 6 Zambian Hemaquets were advanced. Then, under fluoroscopic guidance through the 5 and 6 [place]ian Hemaquet four 5 Z[place]ian Arnoldo curved quadripolar electrophysiology catheters were advanced and positioned along the His, upper right atrium and coronary sinus. Basic intervals were measured. They were within normal limits. The atrial pacing protocol was performed. No tachyarrhythmia was performed. Ventricular pacing protocol was performed. No ventricular tachycardia was induced. Isuprel was infused at 4 mcg. Atrial and ventricular pacing protocol were repeated. No tachy was induced. At that point, procedure was complete. All catheters and Hemaquet were removed. The patient will be kept on the table and a single chamber defibrillator will be implanted for sudden primary prevention. No incident reported. The patient tolerated the procedure. Blood loss minimal. IMPRESSION 1. Electrocardiogram: At baseline the patient was in sinus rhythm. Post- procedure electrocardiogram was unchanged. 2. Basic Interval: The basic cycle length was around 890 580 milliseconds. AH 98 H-V was around 48 milliseconds. 3. Ventricular Pacing Protocol: no tachyarrhythmia was induced. 4. Atrial pacinng protocol. No tachy was induce CONCLUSIONS Negative electrophysiology study for supra and ventricular tachycardia. COMMENT AND RECOMMENDATION The patient will be kept on the table and single chamber defibrillator will be implanted for sudden primary prevention. Mode Foote MD Sep 03, 2017 11:44
[2017-09-03] MEDS ORDERED: ATROPINE SULFATE 1 MG/ML VIAL IV PUSH PRN (11:45)
[2017-09-03] MEDS ORDERED: SODIUM CHLOR 0.9% 250 ML INJ 250 ML IV PRN (11:45)
[2017-09-03] MEDS ORDERED: oxyCODONE/ACETAMINOPHEN 5 MG/325 MG TAB PO PRN (11:45)
[2017-09-03] MEDS ORDERED: LIDOCAINE HCL 1% 50 ML VIAL INFIL PRN (11:45)
[2017-09-03] MEDS ORDERED: LORazepam 2 MG/ML VIAL IV PUSH PRN (11:45)
[2017-09-03] MEDS ORDERED: BACITRACIN OINT 0.9 GM PKT TOP ONE (11:45)
[2017-09-03] MEDS ORDERED: ONDANSETRON ODT 4 MG TAB PO PRN (11:45)
[2017-09-03] MEDS ORDERED: SODIUM CHLORIDE 0.9% FLUSH 10 ML FLUSH IV FLUSH PRN (11:45)
[2017-09-03] MEDS ORDERED: MISC INFORMATION XX ONE (11:45)
[2017-09-03] MEDS ORDERED: ePHEDrine/NS 25 MG/5 ML SYRINGE IV ONE (12:00)
[2017-09-03] MEDS ORDERED: PROPOFOL 200 MG/20 ML AMP IV ONE (12:00)
[2017-09-03] MEDS ORDERED: PHENYLEPH/NS 1000 MCG/10 ML SYR IV ONE (12:00)
[2017-09-03] MEDS ORDERED: ONDANSETRON HCL 4 MG/2 ML VIAL IV ONE (12:00)
[2017-09-03] MEDS ORDERED: ALBUTEROL SULFATE 90 MCG/ACT HFA 8 GM INHALER INH PRN (12:00)
[2017-09-03] MEDS ORDERED: LIDOCAINE HCL 1% PF 5 ML SYRINGE OTHER ONE (12:00)
--- NOTE | 2017-09-03 12:42 | RADRPT ---
EXAM DATE: 09/03/2017 12:37 PM EDT AGE/SEX: 67 years / Male INDICATIONS: Post ICD placement. CLINICAL DATA: This is the patient's initial encounter. Patient reports that signs and symptoms have been present for 1 day and indicates a pain score of 3/10. MEDICAL/SURGICAL HISTORY: Cardiovascular disease. Coronary artery stent. COMPARISON: [facility] [place], CHEST SINGLE AP, 03/14/2017. . FINDINGS: Status post placement of a left-sided pacemaker. There is no evidence of pneumothorax. There is some mild atelectasis in the left lung base with some elevation of the left hemidiaphragm. This is stable compared to the prior examination. Heart size is within normal limits and stable. No evidence of any pleural effusions. The right lung is grossly clear. The bony structures are stable. CONCLUSION: Status post placement of a left-sided pacemaker. No evidence of pneumothorax. Electronically signed by: Damian Ritchie MD 09/03/2017 12:41 PM EDT
[2017-09-03] MEDS: oxyCODONE/ACETAMINOPHEN 5 MG/325 MG TAB PO PRN ×2 (15:04→21:05)
[2017-09-03] MEDS: ceFAZolin 2 GM PREMIX 50 ML IV SCH (16:49)
[2017-09-03] MEDS: SODIUM CHLORIDE 0.9% FLUSH 10 ML FLUSH IV FLUSH SCH (21:00)
[2017-09-03] MEDS: METOPROLOL TARTRATE 50 MG TAB PO SCH (21:01)
--- NOTE | 2017-09-03 22:57 | EKG ---
Date Performed: 09/03/2017 Time Performed: 07:26:56 PTAGE: 67 years EKG: Sinus bradycardia. Anteroseptal T wave changes may be due to myocardial ischemia Abnormal E CG PREVIOUS TRACING : 03/15/2017 05.26 DOCTOR: Mode Foote Interpretating Date/Time 09/03/2017 22:52:28
[2017-09-04] VITALS (17 sets, daily range): BP systolic 128–147; BP diastolic 83–104; PULSE 58–76; RESP 16–20; TEMP 98–98.3; O2SAT 98
[2017-09-04] MEDS: ceFAZolin 2 GM PREMIX 50 ML IV SCH ×2 (01:30→09:00)
[2017-09-04] MEDS ORDERED: CLOPIDOGREL 75 MG TAB PO SCH (09:00)
[2017-09-04] MEDS ORDERED: SACUBITRIL/VALSARTAN 49 MG-51 MG TAB PO SCH (09:00)
[2017-09-04] MEDS ORDERED: TOLTERODINE TARTRATE 4 MG CAP LA PO SCH (09:00)
[2017-09-04] MEDS: SODIUM CHLORIDE 0.9% FLUSH 10 ML FLUSH IV FLUSH SCH (09:00)
[2017-09-04] MEDS ORDERED: ATORVASTATIN 40 MG TAB PO SCH (09:00)
[2017-09-04] MEDS ORDERED: DOCUSATE SODIUM 100 MG CAP PO SCH (09:00)
[2017-09-04] MEDS ORDERED: PANTOPRAZOLE SOD 40 MG DELAYED RELEASE TAB PO SCH (09:00)
[2017-09-04] MEDS ORDERED: ASPIRIN 81 MG CHEW TAB CHEW SCH (09:00)
[2017-09-04] MEDS ORDERED: LORATADINE 10 MG TAB PO SCH (09:00)
[2017-09-04] MEDS ORDERED: DIGOXIN 0.125 MG TAB PO SCH (09:00)
[2017-09-04] MEDS: METOPROLOL TARTRATE 50 MG TAB PO SCH (09:42)
[2017-09-04] MEDS: oxyCODONE/ACETAMINOPHEN 5 MG/325 MG TAB PO PRN (09:44)
--- NOTE | 2017-09-04 12:24 | HHI.PR ---
Subjective Remarks Feeling ok Objective Vital Signs Date Time Temp Pulse Resp B/P (MAP) Pulse Ox O2 Delivery O2 Flow Rate FiO2 09/04/17 11:30 18 09/04/17 11:06 98.0 76 16 136/91 (106) 98 09/04/17 11:00 68 09/04/17 07:31 98.0 63 18 147/104 (118) 98 09/04/17 07:00 59 09/04/17 06:00 62 09/04/17 05:00 65 09/04/17 04:14 98.3 61 20 128/83 (98) 98 09/04/17 04:00 62 09/04/17 03:00 65 09/04/17 02:00 61 09/04/17 01:00 58 09/04/17 00:00 64 09/03/17 23:32 98.3 66 18 116/83 (94) 97 09/03/17 23:00 61 09/03/17 22:00 68 09/03/17 21:08 97.5 62 18 126/83 (97) 97 09/03/17 21:00 60 09/03/17 20:00 64 09/03/17 19:00 60 09/03/17 18:00 59 09/03/17 17:00 61 09/03/17 16:00 57 09/03/17 15:55 98.8 59 16 135/90 (105) 99 09/03/17 15:00 56 09/03/17 14:00 60 09/03/17 13:08 97.9 58 16 131/83 (99) 99 09/03/17 13:00 58 09/03/17 12:30 98.1 56 15 137/89 (105) 97 Room Air I/O 09/03/17 09/03/17 09/03/17 09/04/17 09/04/17 09/04/17 07:00 15:00 23:00 07:00 15:00 23:00 Intake Total 20 ml 240 ml 290 ml 50 ml Output Total 240 ml 200 ml Balance 20 ml 0 ml 90 ml 50 ml Intake Oral 20 ml 240 ml 240 ml IV Total 0 ml 50 ml 50 ml Output Urine Total 240 ml 200 ml # Voids 0 1 Result Diagram: 09/03/17 0800 09/03/17 0800 Imaging Alert, fully oriented lungs: ventilated heart: s1, S2 regular, no gallop Abdomen: soft, no mass Ext: no edema Clean left infraclavicular surgical wound. Last Impressions Chest X-Ray 09/03/17 0000 Signed Impressions: CONCLUSION: Status post placement of a left-sided pacemaker. No evidence of pneumothorax. Current Medications Medications (Trade) Dose Ordered Sig/Bear Route Start Time Stop Time Status Last Admin Lactated Ringer's 1,000 ml @ 30 mls/hr Q24H PRN IV 09/03/17 07:30 09/06/17 07:29 Sodium Chloride 500 ml @ 30 mls/hr [id number] PRN IV 09/03/17 07:30 09/06/17 07:29 (Betadine 5% Antisepsis Kit) 1 applic [employer] PRN EACH NARE 09/03/17 07:30 09/06/17 07:29 Sodium Chloride 1,000 ml @ 30 mls/hr Q24H IV 09/03/17 07:30 Cefazolin Sodium/ Dextrose 50 ml @ 100 mls/hr [employer] IV 09/03/17 07:30 09/06/17 07:29 09/03/17 08:59 Vancomycin HCl 1000 mg/Sodium Chloride 250 ml @ 250 mls/hr [employer] IV 09/03/17 07:30 09/06/17 07:29 09/03/17 08:37 (Ativan) 1 mg [employer] SL 09/03/17 07:30 09/06/17 07:29 (Betadine 5% Antisepsis Kit) 2 applic [employer] EACH NARE 09/03/17 07:30 09/06/17 07:29 09/03/17 08:10 (Bactroban Nasal 2% Oint) 1 applic [employer] NASAL 09/03/17 07:30 09/06/17 07:29 (Percocet 5-325 Mg) 1 tab Q4H PRN PO 09/03/17 11:45 (Percocet 5-325 Mg) 2 tab Q4H PRN PO 09/03/17 11:45 09/04/17 09:44 (Atropine Inj) 0.5 mg UNSCH PRN IV PUSH 09/03/17 11:45 (Zofran Odt) 4 mg Q4H PRN PO 09/03/17 11:45 (NS Flush) 2 ml UNSCH PRN IV FLUSH 09/03/17 11:45 (NS Flush) 2 ml BID IV FLUSH 09/03/17 21:00 09/04/17 09:00 (Proair Hfa Inh) 2 puff Q4H PRN INH 09/03/17 12:00 (Aspirin Chew) 81 mg DAILY CHEW 09/04/17 09:00 09/04/17 09:42 (Lipitor) 40 mg DAILY PO 09/04/17 09:00 09/04/17 09:42 (Plavix) 75 mg DAILY PO 09/04/17 09:00 09/04/17 09:42 (Lanoxin) 0.125 mg DAILY PO 09/04/17 09:00 09/04/17 09:44 (Colace) 100 mg DAILY PO 09/04/17 09:00 09/04/17 09:42 (Claritin) 10 mg DAILY PO 09/04/17 09:00 09/04/17 09:42 (Lopressor) 50 mg BID PO 09/03/17 21:00 09/04/17 09:42 (Protonix) 40 mg DAILY PO 09/04/17 09:00 09/04/17 09:42 (Entresto 49-51 Mg) 1 tab DAILY PO 09/04/17 09:00 09/04/17 09:44 (Detrol La) 4 mg DAILY PO 09/04/17 09:00 09/04/17 09:42 Assessment and Plan Problem List: (1) CHF (congestive heart failure) ICD Codes: I50.9 - Heart failure, unspecified Plan: On optimal medical management (2) Cardiac defibrillator in situ ICD Codes: Z95.810 - Presence of automatic (implantable) cardiac defibrillator Plan: Clean surgical wound Device well functioning Will be DH Follow up as previously scheduled Mode Foote MD Sep 04, 2017 12:24
[2017-09-04] MEDS ORDERED: HYDR-3366 PO (12:27)
[2017-09-04] MEDS ORDERED: CEPH-460 PO (12:27)
--- NOTE | 2017-09-04 16:27 | EKG ---
Date Performed: 09/03/2017 Time Performed: 12:11:58 PTAGE: 67 years EKG: SINUS BRADYCARDIA NONSPECIFIC T-WAVE ABNORMALITY BORDERLINE ECG when compared to prior EKG, the analysis could be changes consistent with anteroseptal mycocardial infarction PREVIOUS TRACING : 09/03/2017 07.26 DOCTOR: Grant Rodriguez Interpretating Date/Time 09/04/2017 16:26:23
--- NOTE | 2017-09-04 16:29 | EKG ---
Date Performed: 09/04/2017 Time Performed: 03:58:08 PTAGE: 67 years EKG: Sinus bradycardia Anteroseptal T wave changes may be due to myocardial ischemia Low QRS vol tages in precordial leads Abnormal ECG when compared to prior EKG,no significant change noted continu ed changes of myocardial infarction are noted. Clinical correlation is recommended PREVIOUS TRACING : 09/03/2017 12.11 DOCTOR: Grant Rodriguez Interpretating Date/Time 09/04/2017 16:28:24
== END 2017-09-04 13:29 | disposition home or self-care (01) ==
LOC: HDOC 06:50 → HDIC 06:51 → HCIS 12:48 → HDOC 09-04 13:29
PROVIDERS: ATTEND Internal Medicine Interventional Cardiology
DX: I13.0 Hypertensive heart and chronic kidney disease with heart failure and stage 1 through stage 4 chronic kidney disease, or unspecified chronic kidney disease (principal); I50.20 Unspecified systolic (congestive) heart failure; N18.9 Chronic kidney disease, unspecified; R06.02 Shortness of breath; E78.5 Hyperlipidemia, unspecified; I25.119 Atherosclerotic heart disease of native coronary artery with unspecified angina pectoris; I48.91 Unspecified atrial fibrillation; I25.5 Ischemic cardiomyopathy; D64.9 Anemia, unspecified; Z79.82 Long term (current) use of aspirin
CPT/HCPCS: 00530; 33249; 71045; 80048; 85025; 85610; 85730; 86850; 86900; 86901; 93005; 93620; 93623; C1722; C1730; C1777; J0690; J1644; J2370; J2405; J3010; J3370; J7050